=== PATIENT | female | born 1960 | race African-American/Black ===

== ENCOUNTER 2024-08-29 09:16 | Outpatient (AMB) | payer OTHER, SELFPAY ==
--- NOTE | 2024-08-29 09:31 | A.OFFVIS_ITS ---
VS Expanded 08/29/24 09:33 09/06/24 21:19 Height 5 ft 3 in 5 ft 3 in Weight 217 lb 217 lb BMI 38.4 38.4 Intake Visit Reasons: Estrogen receptor pos Medication List - Last Reconciled 09/04/[address], LDN metformin 500 mg PO BID Nutrition Presentation Details: Pt presents for MNT for T2DM with malignant neoplasm of upper inner quadrant of left breast . Pt referred by Dr. Jc Silver from [facility] Pt reports currently participating in the [employer] program in [place] , 2 hours a week Pt reports hx of T2DM , stent in heart in 2021, HTN, hyperlipidemia currently on metformin 500 mg twice/day and jardiance 10 mg/d - did not bring glucometer to this appt Food frequency f: 0-1/d v: 1 serving/d dairy: 1-2/d starches > 20 fish 0-1/m beverages: water etoh/smoking----- BS Monitoring Most Recent Diabetes Results: No Data to Display UMB-Uergyvb-Tc.Jeor Equation Height: 5 ft 3 in Weight: 217 lb Resting Metabolic Rate: 1497.72 Calculated Activity Level: Mild Activity Calories Needed to Maintain Weight: 9.37 Diagnosis Nutrition problem #1: overweight/obesity As related to (etiology) #1: lack of nutrit education and diagnosis As evidenced by (sign/symptom) #1: food recall [facility] Medical History (Updated 09/04/24 @ 14:[address], LDN) HTN (hypertension) Hyperlipidemia 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, estrogen receptor positive Assessment & Plan Assessment & Plan (1) T2DM (type 2 diabetes mellitus): Comment: w malignant neoplasm of upper inner quadrant of left bread , estrogen receptor positive Code(s): E11.9 - Type 2 diabetes mellitus without complications Category: Medical Plan: Wt: 98 Kg ( 09/18 ) Est kcal needs as per MSJ: 2000 (40% carb, 30% protein/fat) Est fluid needs as per 25-30 ml/d: 3000 Est prot per day as per 1 g/kg bw: 98 Recommend fiber intake : 8-10 g per day and gradually increase to 25-28 g per day for women and 35-38 g for men or as tolerated Recommend sodium intake per day : less than 2300 mg Educated patient on: ( R = reviewed V = verbalizes understanding N/R = needs review N/A = not applicable * Food sources of carbohydrate, adequate serving sizes and its role in various health conditions: R * Differences between complex carbohydrates a simple carbohydrates, role of fiber in diet: R * Lean protein sources of foods: R * Differences between types of fats and role in diet (mono on saturated fat fatty acids, saturated fatty acids, trans fats): R V N/R * Food sources of sodium in salt and healthy modifications for heart health in kidney health: R V R/V * Vitamins and minerals: R V N/R * Healthy plate method concept: R V N/R * Physical activity: Benefits a precaution: R V N/R * Hypoglycemia protocol (rule of 15): R V N/R * Dietary prevention of Hyperglycemia: R V Patient Instructions: Choose whole grain foods (lentils, beans, whole grain breads/cereals/fruits veg ) 45-60 g carb per meal following healthy plate method choose yogurt with fruit as bedtime snack, having at least a serving of protein at bedtime keep hydrated by having water, fruits/herb infusedwater, milk, broth, low sugar jello Coding Level of Care Code Nutr Indiv Intake (61718) Diagnoses T2DM (type 2 diabetes mellitus) E11.9 Time Spent (min) 30
[2024-08-29 09:33] VITALS: BMI 38.4
--- OUTSIDE RECORDS SUMMARY | 2024-08-29 10:18 | XMS_ITS | Encounter Summary ---
Author Organization [facility] Address [address] [place] [address] Care Team Providers Care Substance Abuse Clinician Name Role Phone Kristin Lutz MD Primary Care Provider [phone] Encounter Details Date Type Department Care Team (Latest Contact Info) Description 07/30/2024 9:23 AM EST - 07/30/2024 11:59 PM EST Hospital Encounter [facility] Radiation Oncology [address] [phone] Discharge Disposition: Home or Self Care Social History Tobacco Use Types Packs/Day Years Used Date Smoking Tobacco: Every Day Cigarettes 0.1 40.2 Started: 1984 Smokeless Tobacco: Never Alcohol Use Standard Drinks/Week Comments Not Currently 0 (1 standard drink = 0.6 oz pur e alcohol) Interpersonal Safety Answer Date Record ed Physical Abuse 05/02/2024 Verbal Abuse 05/02/2024 Comments No Sex and Gender Information Value Date Recorded Sex Assigned at Female 04/27/2024 3:58 PM EDT Legal Sex Female 12:02 AM EST Gender Identity Female 04/27/2024 3:58 PM EDT Sexual Orientation Not on file documented as of this encounter Medications at Time of Discharge acetaminophen (TYLENOL 8 HOUR) 650 mg 8 hr tablet PLEASE SEE ATTACHED FOR DETAILED DIRECTIONS 07/13/2024 acetaminophen (TYLENOL) 500 mg tablet Take by mouth every 6 (six) hours if needed for mild pain. albuterol HFA (PROAIR HFA ; PROVENTIL HFA ; VENTOLIN HFA) 90 mcg/actuation inhaler INHALE 2 PUFFS INHALATION EVERY 6 HOURS NEEDED FOR WHEEZING/SHORTN ESS OF BREATH 05/25/2024 amoxicillin (AMOXIL) 500 mg capsule Take 1 capsule (500 mg total) by mouth every 12 (twelve) hours. aspirin 81 mg EC tablet Take 1 tablet (81 mg total) by mouth 1 (one) time. 01/14/2021 atorvastatin (LIPITOR) 80 mg tablet TAKE 1 TABLET BY MOUTH EVERYDAY AT BEDTIME 90 tablet 3 07/24/2024 blood-glucose meter misc 1 Device by Not Applicable route. 12/24/2022 calcium carbonate-vit D3-min 600 mg-10 mcg (400 unit) tablet Take 1 tablet by mouth 2 (two) times a day. 180 tablet 3 06/13/2024 calcium carbonate-vitamin D3 600 mg-5 mcg (200 unit) per tablet Take 1 tablet by mouth 2 times daily. 07/04/2024 diclofenac (VOLTAREN) 1 % topical gel Apply 1 Dose topically. 10/26/2022 glucose blood test strip 1 each. 12/29/2022 ibuprofen (ADVIL,MOTRIN) 400 mg tablet TAKE 1 TABLET BY MOUTH EVERY 6 HOURS NEEDED FOR MODERATE PAIN FOR UP TO 10 DAYS 05/02/2024 Jardiance 10 mg tabletIndications:T ype 2 diabetes mellitus without complications (CMS/[facility]) TAKE 1 TABLET BY MOUTH EVERY DAY 90 tablet 3 07/25/2024 lancets lancets Dx: e11.9 Check blood sugars two times daily 12/29/2022 latanoprost (XALATAN) 0.005 % ophthalmic solution Administer 1 drop into both eyes at bedtime. metFORMIN (GLUCOPHAGE) 500 mg tablet TAKE 1 TABLET BY MOUTH TWICE A DAY WITH MEALS 180 tablet 1 07/24/2024 metoprolol succinate (TOPROL-XL) 50 mg 24 hr tablet TAKE 1 TABLET BY MOUTH EVERY DAY 90 tablet 3 07/24/2024 sacubitriL-valsarta n (Entresto) 24-26 mg per tablet Take 1 tablet by mouth 2 (two) times a day. tobramycin-dexAMETH asone (TOBRADEX) ophthalmic suspension PLACE 1 DROP INTO BOTH EYES EVERY 4 HOURS (WHILE AWAKE). 01/03/2024 documented as of this encounter Discharge Disposition Disposition Code Departure Means Destination Home or Self Care documented in this encounter Plan of Treatment Upcoming Encounters Date Type Department Care Team (Late st Contact Info) Description 09/04/2024 11:00 AM EDT [facility] 271 [facility] [address] [place] [phone] Dio Ram MD 271 [facility] [address] [place] [address] 02/19/2025 9:30 AM EDT Office Visit Internal Medicine [facility] [address] [phone] Kristin Lutz MD 175 [facility] [address] [place] [phone] 03/04/2025 1:00 PM EDT Office Visit [facility] Hematology Oncology [address] [place] [phone] Samara Trujillo MD [address] [place] [address] documented as of this encounter Procedures Procedure Name Priority Date/Time Associated Diagnosis Comments RAD ONC MSQ TREATMENT SUMMARY Routine 07/30/2024 10:09 AM EST documented in this encounter Results * Rad Onc Msq Treatment Summary (07/30/2024 10:09 AM EST) Treatment Site left breast boost MOSAIQ RADIATION ONCOLOGY Course Number 1 MOSAIQ RADIATION ONCOLOGY Prescribed Fractional Dose 250 cGray MOSAIQ RADIATION ONCOLOGY Prescribed Total Dose 1,000 cGray MOSAIQ RADIATION ONCOLOGY Actual Fractions Delivered 4 MOSAIQ RADIATION ONCOLOGY Prescription Pattern Comment Vision MOSAIQ RADIATION ONCOLOGY Actual Session Delivered Dose 250 cGray MOSAIQ RADIATION ONCOLOGY Actual Total Dose 1,000 cGray MOSAIQ RADIATION ONCOLOGY Prescribed Technique NORTH/LPO MOSAIQ RADIATION ONCOLOGY Elapsed Days 5 MOSAIQ RADIATION ONCOLOGY Start Date 07/25/2024 MOSAIQ RADIATION ONCOLOGY Last Date 07/30/2024 MOSAIQ RADIATION ONCOLOGY Prescribed Number of Fractions 4 MOSAIQ RADIATION ONCOLOGY 07/30/2024 10:0 9 AM EST us Physician Radiation Oncology RADIATION ONCOLO GY ORDERABLES Final Result MOSAIQ RADIATION ONCOLOGY documented in this encounter Visit Diagnoses Not on filedocumented in this encounter Additional Health Concerns Assessment Noted Time A fall risk assessment has been complete d for the patient 06/11/2024 9:42 AM EST documented as of this encounter Care Teams Substance Abuse Clinician Relationship Specialty Start Date End Date Kristin Lutz MD [address] [phone] PCP - General Internal Medicine 05/22/18 documented as of this encounter
--- OUTSIDE RECORDS SUMMARY | 2024-08-29 10:18 | XMS_ITS | Encounter Summary ---
Author Organization [facility] Address [address] [place] [address] Care Team Providers Care Electronic Test Technician Name Role Phone Kristin Lutz MD Primary Care Provider [phone] Reason for Visit * Reason Comments Follow-up Encounter Details Date Type Department Care Team (Latest Contact Info) Description 08/28/2024 10:00 AM EST Hospital Encounter [facility] Radiation Oncology [address] [phone] Anjelica Fritz NP [address] [place] [address] 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, estrogen receptor positive (CMS/HCC) (Primary Dx) Social History Tobacco Use Types Packs/Day Years [...] on file documented as of this encounter Last Filed Vital Signs Vital Sign Reading Time Taken Comments Blood Pressure 118/74 08/28/2024 10:10 AM EST Pulse 78 08/28/2024 10:10 AM EST Temperature 36.2 ??C (97.1 ??F) 08/28/2024 10:[address] Respiratory Rate 16 08/28/2024 10:10 AM EST Oxygen Saturation 96% 08/28/2024 10:10 AM EST Inhaled Oxygen Concentration - - Weight 103 kg (226 lb 12.8 oz) 08/28/2024 10:10 AM EST Height 160 cm (5' 3 ) 08/28/2024 10:10 AM EST Body Mass Index 40.18 08/28/2024 10:10 AM EST documented in this encounter Progress Notes * Anjelica Fritz NP - 08/28/2024 10:00 AM EST [address] [phone] RADIATION ONCOLOGY FOLLOW-UP Staff Physician: Anjelica Fritz NP Requesting Physician: Jc Silver MD Date of Service: 08/28/2024 Accompanied by: self Diagnosis: 1. 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, estrogen receptor positive (CMS/HCC) Stage: Cancer Staging 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, estrogen receptor positive (CMS/HCC) Staging form: Breast, AJCC 8th Edition - Pathologic stage from 05/03/2024: Stage IA (pT1c, pN1mi(sn), cM0, G2, ER+, HI+, HER2-, Oncotype DXscore: 16) - Signed by Cliff Reyes MD on 05/28/2024 Prior treatment: [employer] OPERATOR: Left Breast Treatment Period Technique Fraction Dose Fractions Total Dose Course 1 07/03/2024-07/30/2024 (days elapsed: 27) left breast 07/03/2024-07/24/2024 Tangents 267 / 266 cGy 4272 / 4,256 cGy left breast boost 07/25/2024-07/30/2024 NORTH/LPO 250 / 250 cGy 1000 / 1,000 cGy HPI: Shiloh Naylor returns for follow-up evaluation after radiation therapy. She reports she is feeling great. She reports she has some soreness, shooting in the pains, and nipple sensitivity. It is improving in frequency. Using Cetaphil and EVOO for the dryness in her skin.. Anastrozole has not started. Starts next weekend. Planning to start the [employer] program this week. HPI ROS: Review of Systems Constitutional: Negative for fatigue. Musculoskeletal: Positive for back pain. Skin: Positive for itching (dry skin). Neurological: Negative for headaches. Breast: Positive for nipple inversion and breast pain. Negative for breast skin changes and nippledischarge. Medications: Current Outpatient Medications: acetaminophen (TYLENOL 8 HOUR) 650 mg 8 hr tablet, PLEASE SEE ATTACHED FOR DETAILED DIRECTIONS, Disp: , Rfl: acetaminophen (TYLENOL) 500 mg tablet, Take by mouth every 6 (six) hours if needed for mild pain., Disp: , Rfl: amoxicillin (AMOXIL) 500 mg capsule, Take 1 capsule (500 mg total) by mouth every 12 (twelve) hours., Disp: , Rfl: aspirin 81 mg EC tablet, Take 1 tablet (81 mg total) by mouth 1 (one) time., Disp: , Rfl: atorvastatin (LIPITOR) 80 mg tablet, TAKE 1 TABLET BY MOUTH EVERYDAY AT BEDTIME, Disp: 90 tablet, Rfl: 3 blood-glucose meter misc, 1 Device by Not Applicable route., Disp: , Rfl: calcium carbonate-vit D3-min 600 mg-10 mcg (400 unit) tablet, Take 1 tablet by mouth 2 (two) times a day., Disp: 180 tablet, Rfl: 3 diclofenac (VOLTAREN) 1 % topical gel, Apply 1 Dose topically., Disp: , Rfl: glucose blood test strip, 1 each., Disp: , Rfl: ibuprofen (ADVIL,MOTRIN) 400 mg tablet, TAKE 1 TABLET BY MOUTH EVERY 6 HOURS NEEDED FOR MODERATEPAIN FOR UP TO 10 DAYS, Disp: , Rfl: Jardiance 10 mg tablet, TAKE 1 TABLET BY MOUTH EVERY DAY, Disp: 90 tablet, Rfl: 3 lancets lancets, Dx: e11.9 Check blood sugars two times daily, Disp: , Rfl: latanoprost (XALATAN) 0.005 % ophthalmic solution, Administer 1 drop into both eyes at bedtime., Disp: , Rfl: metFORMIN (GLUCOPHAGE) 500 mg tablet, TAKE 1 TABLET BY MOUTH TWICE A DAY WITH MEALS, Disp: 180 tablet, Rfl: 1 metoprolol succinate (TOPROL-XL) 50 mg 24 hr tablet, TAKE 1 TABLET BY MOUTH EVERY DAY, Disp: 90 tablet, Rfl: 3 sacubitriL-valsartan (Entresto) 24-26 mg per tablet, Take 1 tablet by mouth 2 (two) times a day., Disp: , Rfl: albuterol HFA (PROAIR HFA ; PROVENTIL HFA ; VENTOLIN HFA) 90 mcg/actuation inhaler, INHALE 2 PUFFS INHALATION EVERY 6 HOURS NEEDED FOR WHEEZING/SHORTNESS OF BREATH (Patient not taking: Reported on08/28/2024), Disp: , Rfl: calcium carbonate-vitamin D3 600 mg-5 mcg (200 unit) per tablet, Take 1 tablet by mouth 2 times daily. (Patient not taking: Reported on 08/28/2024), Disp: , Rfl: tobramycin-dexAMETHasone (TOBRADEX) ophthalmic suspension, PLACE 1 DROP INTO BOTH EYES EVERY 4 HOURS (WHILE AWAKE). (Patient not taking: Reported on 08/28/2024), Disp: , Rfl: Imported vital signs, weight Visit Vitals BP 118/74 (BP Location: Left arm, Patient Position: Sitting, BP Cuff Size: Adult) Pulse 78 Temp 36.2 ??C (97.1 ??F) (Temporal) Resp 16 Ht 1.6 m (63 ) Wt 103 kg (226 lb 12.8 oz) LMP 04/27/2019 (Approximate) Comment: Age 57 SpO2 96% BMI 40.18 kg/m?? OB Status Postmenopausal Smoking Status Every Day BSA 2.04 m?? No data recorded Physical Exam: Physical Exam Constitutional: General: She is not in acute distress. Chest: Comments: Left breast: moderate tanning. No swelling or erythema noted. Skin: General: Skin is warm and dry. Neurological: Mental Status: She is alert and oriented to person, place, and time. Mental status is at baseline. Psychiatric: Mood and Affect: Mood normal. Behavior: Behavior normal. Thought Content: Thought content normal. Judgment: Judgment normal. Impression: Anastrozole for 5 years. Any concerns with this medication please let Dr. Trujillo know. Follow-up with Dr. Ram 09/04/[address] Trujillo 03/04/2025. Resume mammograms annually. Will have a clinical breast exam every six months. Encouraged to do self-breast exams and if noted any changes to report to providers promptly. Eat a heart healthy diet and exercise with goal of 30 minutes per day five times per week. If breast cancer was to reoccur in the treatment area we would likely not treat again with radiation. Likely the treatment would be a mastectomy. Plan: Can follow-up as needed with any questions or concerns. Anjelica Fritz NP 08/28/24 12:29 PM EST documented in this encounter Plan of Treatment Upcoming Encounters Date Type Department Care Team (Late st Contact Info) Description 09/04/2024 11:00 AM EDT Office Visit [facility] [address] [phone] Dio Ram MD 271 [facility] 110 [place] [address] 02/19/2025 9:30 AM EDT Office Visit Internal Medicine [facility] [address] [phone] Kristin Lutz MD [address] [phone] 03/04/2025 1:00 PM EDT Office Visit [facility] Hematology Oncology [address] [place] [phone] Samara Trujillo MD [address] [place] [address] documented as of this encounter Visit Diagnoses Diagnosis 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, estrogen receptor positive (CMS/HCC)- Primary documented in this encounter Historical Medications * This list may reflect changes made after this encounter. calcium carbonate-vitami n D3 600 mg-5 mcg (200 unit) per tablet Take 1 tablet by mouth 2 times daily. 07/04/2024 ibuprofen (ADVIL,MOTRIN) 400 mg tablet TAKE 1 TABLET BY MOUTH EVERY 6 HOURS NEEDED FOR MODERATE PAIN FOR UP TO 10 DAYS 05/02/2024 tobramycin-dexAM ETHasone (TOBRADEX) ophthalmic suspension PLACE 1 DROP INTO BOTH EYES EVERY 4 HOURS (WHILE AWAKE). 01/03/2024 acetaminophen (TYLENOL 8 HOUR) 650 mg 8 hr tablet PLEASE SEE ATTACHED FOR DETAILED DIRECTIONS 07/13/2024 albuterol HFA (PROAIR HFA ; PROVENTIL HFA ; VENTOLIN HFA) 90 mcg/actuation inhaler INHALE 2 PUFFS INHALATION EVERY 6 HOURS NEEDED FOR WHEEZING/SHORTNE SS OF BREATH 05/25/2024 added in this encounter Additional Health Concerns Assessment Noted Time A fall risk assessment has been complete d for the patient 06/11/2024 9:42 AM EST documented as of this encounter Care Teams Electronic Test Technician Relationship Specialty Start Date End Date Kristin Lutz MD [address] [place] [phone] PCP - General Internal Medicine 05/22/18 documented as of this encounter
--- OUTSIDE RECORDS SUMMARY | 2024-08-29 10:18 | XMS_ITS | Encounter Summary ---
Author Organization [facility] Address [address] [place] [address] Care Team Providers Care Fur Nailer Name Role Phone Kristin Lutz MD Primary Care Provider [phone] Reason for Visit * Reason Onset Date Comments faxed form 08/22/2024 [facility] Encounter Details Date Type Department Care Team ([facility] st Contact Info) Description 08/22/[address] [facility] [address] [place] [phone] Ivonne Ambrose MA faxed form ([facility]) Social History Tobacco Use Types Packs/Day Years [...] on file documented as of this encounter Progress Notes * Ivonne Ambrose MA - 08/22/2024 11:55 AM EST [facility] Dental clearance form for Extractions. Placed in providers folder for signature. documented in this encounter Plan of Treatment Upcoming Encounters Date Type Department Care Team (Late st Contact Info) Description 09/04/2024 11:00 AM EDT Office Visit [facility] [address] [phone] Dio Ram MD 271 [facility] 110 [place] [address] 02/19/2025 9:30 AM EDT Office Visit Internal Medicine [facility] [address] [phone] Kristin Lutz MD [address] [phone] 03/04/2025 1:00 PM EDT Office Visit [facility] Hematology Oncology [address] [place] [phone] Samara Trujillo MD [address] [place] [address] documented as of this encounter Visit Diagnoses Not on filedocumented in this encounter Additional Health Concerns Assessment Noted Time A fall risk assessment has been complete d for the patient 06/11/2024 9:42 AM EST documented as of this encounter Care Teams Fur Nailer Relationship Specialty Start Date End Date Kristin Lutz MD [address] [phone] PCP - General Internal Medicine 05/22/18 documented as of this encounter
--- OUTSIDE RECORDS SUMMARY | 2024-08-29 10:18 | XMS_ITS | Encounter Summary ---
Author Organization [facility] Address [address] [place] [address] Care Team Providers Care Mud Car Worker Name Role Phone Kristin Lutz MD Primary Care Provider [phone] Reason for Visit * Reason Comments Follow-up Encounter Details Date Type Department Care Team (Late st Contact Info) Description 08/21/2024 1:00 PM EST Office Visit [facility] Hematology Oncology [address] [place] [phone] Samara Trujillo MD [address] [place] [address] Malignant neoplasm of upper-inner quadrant of left [...] Sign Reading Time Taken Comments Blood Pressure 117/89 08/21/2024 1:04 PM EST Pulse 62 08/21/2024 1:04 PM EST Temperature 36.2 ??C (97.1 ??F) 08/21/2024 1:04 PM ES T Respiratory Rate - - Oxygen Saturation 100% 08/21/2024 1:04 PM EST Inhaled Oxygen Concentration - - Weight 101 kg (222 lb) 08/21/2024 1:04 PM EST Height - - Body Mass Index 39.33 08/20/2024 3:10 PM EST documented in this encounter Progress Notes * Samara Trujillo MD - 08/21/2024 1:00 PM EST ONC CANCER FOLLOW UP CHIEF COMPLAINT: Follow-up IDENTIFIER:Shiloh Naylor is a 64 y.o. female. 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, patient after lumpectomy had adjuvant radiation which she finished 3 weeks ago, patient is here to discuss about adjuvant endocrine therapy ROS: Has been feeling fatigue and tired Has skin issues in the left breast after radiation which has been healing No other significant change from previous visit of 06/15/2024 Oncology History 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, estrogen receptor positive (CMS/HCC) 05/03/2024 Cancer Staged Staging form: Breast, AJCC 8th Edition - Pathologic stage from 05/03/2024: Stage IA (pT1c, pN1mi(sn), cM0, G2, ER+, AR+, HER2-, Oncotype DXscore: 16) - Signed by Cliff Reyes MD on 05/28/2024 05/28/2024 Initial Diagnosis 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 This is the current list ofradiation treatment: 3D PRICE ANALYST: Left Breast Treatment Period Technique Fraction Dose Fractions Total Dose Course 1 07/03/2024-07/30/2024 (days elapsed: 27) left breast 07/03/2024-07/24/2024 Tangents 267 / 266 cGy 4272 / 4,256 cGy left breast boost 07/25/2024-07/30/2024 NORTH/LPO 250 / 250 cGy 1000 / 1,000 cGy Cancer Staging 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, estrogen receptor positive (CMS/HCC) Staging form: Breast, AJCC 8th Edition - Pathologic stage from 05/03/2024: Stage IA (pT1c, pN1mi(sn), cM0, G2, ER+, AR+, HER2-, Oncotype DXscore: 16) - Signed by Cliff Reyes MD on 05/28/2024 Patient had an abnormal screening mammogram in February 2024, there was a some asymmetry area in medial part of the left breast Patient underwent diagnostic mammogram and ultrasound subsequently, that confirmed an approximately1 cm solid mass around 8 or 9 o'clock position in the left breast Patient underwent imaging guided biopsy of the left breast mass on 04/02/2024, pathology results showed low-grade invasive lobular carcinoma, ER positive and HER2/geronimo negative Patient subsequently saw Dr. Ram and underwent lumpectomy with sentinel lymph node dissection on 05/02/2024, final pathology showed an approximately 1.2 cm invasive lobular carcinoma, tumor was grade 2, all margins were clear, 4 sentinel lymph node assessed 1 lymph node have microscopic focus, pathological stage was [id number] Patient saw me on 05/16/2024, I had a long discussion with patient and her sister, we sent OncotypeDX testing, her 21 gene recurrence score came back only 16 (there is no potential benefit of adjuvant chemotherapy) Patient started adjuvant radiation for local control from June2024 and finish in first week of July 2024 Patient is starting anastrozole from first week of August 2024 Bone density in April 2024 consistent with osteopenia PAST MEDICAL HISTORY: Patient Active Problem List Diagnosis Benign essential hypertension History of myocardial infarct at age greater than 60 years HLD (hyperlipidemia) Severe obesity (CMS/HCC) Type 2 diabetes mellitus without complication (CMS/HCC) Cervical radiculopathy at C7 Lumbar spondylosis Osteopenia determined by x-ray Sciatica Glaucoma Hypertension Diabetes mellitus (CMS/HCC) 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, estrogen receptor positive (CMS/HCC) Past Medical History: Diagnosis Date Arthritis Cancer (CMS/HCC) Diabetes mellitus (CMS/HCC) Glaucoma Hyperlipidemia Hypertension Myocardial infarction (CMS/HCC) SOCIAL HISTORY: Social History Tobacco Use Smoking status: Every Day Current packs/day: 0.10 Average packs/day: 0.1 packs/day for 40.2 years (4.0 ttl pk-yrs) Types: Cigarettes Start date: 1984 Smokeless tobacco: Never Substance Use Topics Alcohol use: Not Currently FAMILY HISTORY: Family History Problem Relation Name Age of Onset Adrenal disorder Other Breast cancer Other Family Status Relation Name Status Other (Not Specified) Other Alive No partnership data on file Current Outpatient Medications: acetaminophen (TYLENOL) 500 mg tablet, Take by [...] test strip, 1 each., Disp: , Rfl: Jardiance 10 mg tablet, [...] (two) times a day., Disp: , Rfl: No Known Allergies PHYSICAL EXAM: Visit Vitals BP 117/89 (BP Location: Left arm, Patient Position: Sitting, BP Cuff Size: Large adult) Pulse 62 Temp 36.2 ??C (97.1 ??F) (Temporal) Wt 101 kg (222 lb) LMP 04/27/2019 (Approximate) Comment: Age 57 SpO2 100% BMI 39.33 kg/m?? OB Status Postmenopausal Smoking Status Every Day BSA 2.02 m?? ECOG 0 APPEARANCE: Alert and oriented x 3 in no acute distress EYES: nonicteric sclera pink conjunctiva ORAL CAVITY: No erythema or exudates NECK: Neck supple, no significant adenopathy, HEART: normal S1 and S2 LUNG: clear to auscultation bilaterally LYMPH NODES: No palpable superficial adenopathy ABDOMEN: soft, nontender and no organomegaly appreciated EXTREMITIES: No edema erythema or tenderness IMPRESSION: 1. 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, estrogen receptor positive (CMS/HCC) Patient is a very pleasant 64-year-old -Russian female who recently had lumpectomy for invasive lobular carcinoma of left breast, ER positive, AR negative and HER2/geronimo negative, patient had [id number] pathology, patient had low Oncotype DX recurrence score so patient underwent adjuvant radiation which she finished 3 weeks ago, patient have some fatigue and skin issues due to radiation, I told patient radiation will continue to work for at least 2 to 4- week after finishing radiation, I toldpatient about adjuvant endocrine therapy I discussed with the patient and her family in detail about risk benefit of adjuvant endocrine therapy/aromatase inhibitor, explained rationale of using adjuvant endocrine therapy for 5-year, explained potential side effect including hot flashes, issues with the bone density, aches and pain etc. indetail PLAN: Patient will start anastrozole 1 mg daily from first week of August 2024 I will see her back in 6 months Samara Trujillo MD documented in this encounter Plan of Treatment Upcoming Encounters Date Type Department Care Team (Late st Contact Info) Description 09/04/2024 11:00 AM EDT Office Visit Breast Care [facility] [address] [place] [address] Dio Ram MD [address] [facility] [address] [place] [address] 02/19/2025 9:30 AM EDT Office Visit Internal Medicine - [place] [address] [phone] Kristin Lutz MD [address] [phone] 03/04/2025 1:00 PM EDT Office Visit [facility] Hematology Oncology [address] [place] [phone] Samara Turjillo MD [address] [place] [address] documented as of this encounter Visit Diagnoses Diagnosis 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, estrogen receptor positive (CMS/HCC)- Primary documented in this encounter Additional Health Concerns Assessment Noted Time A fall risk assessment has been complete d for the patient 06/11/2024 9:42 AM EST documented as of this encounter Care Teams Mud Car Worker Relationship Specialty Start Date End Date Kristin Lutz MD [address] [phone] PCP - General Internal Medicine 05/22/18 documented as of this encounter
--- OUTSIDE RECORDS SUMMARY | 2024-08-29 10:18 | XMS_ITS | Encounter Summary ---
Author Organization [facility] Address [address] [place] [address] Care Team Providers Care Supervisor Money Room Name Role Phone Kristin Lutz MD Primary Care Provider Reason for Visit * Reason Comments OTV Encounter Details Date Type Department Care Team (Latest Contact Info) Description 07/30/2024 10:05 AM EST - 07/30/2024 11:59 PM EST Hospital Encounter [facility] Radiation Oncology [address] [place] [phone] Bailey Monique MD [address] [place] [address] 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, estrogen receptor positive (CMS/HCC) (Primary Dx) Discharge Disposition: Home or Self Care Social [...] tabletIndications:T ype 2 diabetes mellitus without complications ([facility]) TAKE 1 TABLET BY MOUTH EVERY DAY [...] or Self Care documented in this encounter Progress Notes * Latoya Mcdonald RN - 07/30/2024 10:05 AM EST Discharge Instructions after Radiation Treatments Side effects present at the end of treatment will usually improve in a few weeks. If you developed a skin reaction, it may continue to worsen for the next 7-10 days. Continue to be gentle with your skin. Your skin will be more sensitive to sunburn. Protect yourself from the sun. If needed, use sunscreen at least SPF 30. Fatigue and weakness may continue for several weeks. Be sure to get plenty of rest. Plan your activities accordingly. Continue healthy eating habits. Stay well hydrated, drink plenty of fluids. Follow-up visits will be scheduled so your Radiation physician can monitor your progress. Follow up in 4 - 6 weeks. Go to front tender for follow up appointment. Please call [phone] and select option #2 with any questions or concerns prior to your next visit. * Latoya Mcdonald RN - 07/30/2024 10:05 AM EST Met with pt and her sister for discharge. Reviewed written discharge instructions and questions answered. Pt was instructed to make a 4-6 week follow up appt upon leaving. Pt verbalized understanding. Pt was instructed to call with any questions or concerns prior. * Bailey Monique MD - 07/30/2024 10:05 AM EST Radiation Oncology On Treatment Visit Patient Name: Shiloh Naylor Date of : 1960 Attending Provider: Bailey Monique MD Encounter Date: 07/30/2024 Diagnosis: 1. 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, estrogen receptor positive (CMS/HCC) Staging Info: Cancer Staging 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, estrogen receptor positive (CMS/HCC) Staging form: Breast, AJCC 8th Edition - Pathologic stage from 05/03/2024: Stage IA (pT1c, pN1mi(sn), cM0, G2, ER+, MD+, HER2-, Oncotype DXscore: 16) - Signed by Cliff Reyes MD on 05/28/2024 Interval/Dose History: 3D SUPERVISOR METAL CANS: Left Breast Treatment Period Technique Fraction Dose Fractions Total Dose Course 1 07/03/2024-07/30/2024 (days elapsed: 27) left breast 07/03/2024-07/24/2024 Tangents 267 / 266 cGy 4272 / 4,256 cGy left breast boost 07/25/2024-07/30/2024 NORTH/LPO 250 / 250 cGy 1000 / 1,000 cGy Subjective: Are you experiencing any fatigue: yes Are you experiencing any skin reactions: No Do you have any concerns about the treatment area: no Any breast pain: yes, pt reports tenderness underneath the breast. When she presses against her breast she can feel the tenderness. Are you using any moisturizer: yes , Pt is using cetaphil to breast. Pain over nipple area Vitals Visit Vitals LMP 04/27/2019 (Approximate) Comment: Age 57 OB Status Postmenopausal Smoking Status Every Day Objective including Physical Exam: Gen: no apparent distress Breast: left breast with no skin reaction Lab Results: Sodium Date Value Ref Range Status 07/27/2024 138 133 - 145 mmol/L Final Potassium Date Value Ref Range Status 07/27/2024 4.0 3.5 - 5.5 mmol/L Final Chloride Date Value Ref Range Status 07/27/2024 108 96 - 110 mmol/L Final CO2 Date Value Ref Range Status 07/27/2024 23 21 - 32 mmol/L Final Glucose POCT Date Value Ref Range Status 05/02/2024 107 (H) 70 - 100 mg/dL Final Glucose Date Value Ref Range Status 07/27/2024 173 (H) 70 - 100 mg/dL Final BUN Date Value Ref Range Status 07/27/2024 20 5 - 25 mg/dL Final Creatinine Date Value Ref Range Status 07/27/2024 1.01 0.50 - 1.10 mg/dL Final Total Protein Date Value Ref Range Status 07/27/2024 7.0 6.0 - 8.0 g/dL Final Albumin Date Value Ref Range Status 07/27/2024 3.9 3.2 - 5.0 g/dL Final Total Bilirubin Date Value Ref Range Status 07/27/2024 0.4 0.0 - 1.4 mg/dL Final AST (SGOT) Date Value Ref Range Status 07/27/2024 18 10 - 42 unit/L Final ALT (SGPT) Date Value Ref Range Status 07/27/2024 34 10 - 60 unit/L Final Alkaline Phosphatase Date Value Ref Range Status 07/27/2024 68 42 - 121 unit/L Final eGFR Date Value Ref Range Status 07/27/2024 62 >=60 mL/min/1.73m2 Final Comment: Calculation based on the Chronic Kidney Disease Epidemiology Collaboration (CKD- EPI) equation refitwithout adjustment for race. No results found for: WBC , ADJUSTEDWBC , HGB , HCT , PLT Treatment Tolerance: Patient is tolerating the treatment well with no concerns. Assessment/Plan: Pt is tolerating treatment well with the expected acute side effects. Referral to Nutrition per patient request No orders of the defined types were placed in this encounter. I have reviewed set-up, dosimetry, and portal images. The Karnofsky performance scale today is 100, Fully active, able to carry on all pre-disease performed without restriction (ECOG equivalent 0). Bailey Monique MD 07/30/2024 10:22 AM EST documented in this encounter Plan of Treatment Upcoming Encounters Date Type Department Care Team (Late st Contact Info) Description 09/04/2024 11:00 AM EDT Office Visit [facility] [address] [place] [address] Dio Ram MD [address] [facility] [address] [place] [address] 02/19/2025 9:30 AM EDT Office Visit Internal Medicine - [place] [address] [phone] Kristin Lutz MD [address] [phone] 03/04/2025 1:00 PM EDT Office Visit [facility] Hematology Oncology [address] [place] [phone] Samara Trujillo MD [address] [place] [address] documented as of this encounter Visit Diagnoses Diagnosis 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, estrogen receptor positive (CMS/HCC)- Primary documented in this encounter Additional Health Concerns Assessment Noted Time A fall risk assessment has been complete d for the patient 06/11/2024 9:42 AM EST documented as of this encounter Care Teams Supervisor Money Room Relationship Specialty Start Date End Date Kristin Lutz MD [address] [phone] PCP - General Internal Medicine 05/22/18 documented as of this encounter
--- OUTSIDE RECORDS SUMMARY | 2024-08-29 10:18 | XMS_ITS | Encounter Summary ---
Author Organization [facility] Address [address] [place] [address] Care Team Providers Care Prawn Trawler Hand Name Role Phone Kristin Lutz MD Primary Care Provider [phone] Reason for Visit * Reason Comments Follow-up Encounter Details Date Type Department Care Team (Latest Contact Info) Description 08/20/2024 3:00 PM EST Office Visit Internal Medicine - [facility] 175 [facility] [address] [place] [address] Hao Michelle NP 175 [facility] [address] [place] [address] Type 2 diabetes mellitus without complication, without long-term current use of insulin (CMS/HCC) (Primary Dx); Lumbar spondylosis; Hypertension, unspecified type; Osteopenia determined by x-ray; Hyperlipidemia, unspecified hyperlipidemia type; Severe obesity (CMS/HCC); 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, estrogen receptor positive (CMS/HCC); History of myocardial infarct at age greater than 60 years Social History Tobacco Use Types Packs/Day Years [...] Sign Reading Time Taken Comments Blood Pressure 130/78 08/20/2024 3:10 PM EST Pulse 85 08/20/2024 3:10 PM EST Temperature 36.4 ??C (97.5 ??F) 08/20/2024 3:10 PM ES T Respiratory Rate - - Oxygen Saturation 99% 08/20/2024 3:10 PM EST Inhaled Oxygen Concentration - - Weight 99.4 kg (219 lb 3.2 oz) 08/20/2024 3:10 P M EST Height 160 cm (5' 3 ) 08/20/2024 3:10 PM EST Body Mass Index 38.83 08/20/2024 3:10 PM EST documented in this encounter Progress Notes * Hao Michelle NP - 08/20/2024 3:00 PM EST CHIEF COMPLAINT: Follow-up IDENTIFIER: Shiloh Naylor is a 64 y.o. old female. HPI: hypertension hyperlipidemia diabetes osteopenia. Shiloh is a 64-year-old female who presents today for a follow-up visit. Recent blood work showed A1c 6.7, diabetes stable. Remaining labs unremarkable. Completed radiation treatment on July 30 2023. Then will be switching to oral medication for cancer management. Needs form filled out to participate in a [email or web address] program, needs medical clearance for exercise. 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 States she is doing well healthwise, denies shortness of breath with exertion, denies chest pain, denies generalized weakness. ROS: See HPI. PAST MEDICAL HISTORY: Patient Active Problem List Diagnosis Date Noted 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, estrogen receptor positive (CMS/HCC) 05/28/2024 Hypertension 05/20/2024 Diabetes mellitus (CMS/HCC) 05/20/2024 Cervical radiculopathy at C7 07/09/2022 Lumbar spondylosis 07/14/2021 History of myocardial infarct at age greater than 60 years 01/22/2021 Osteopenia determined by x-ray 08/06/2020 HLD (hyperlipidemia) 12/16/2017 Type 2 diabetes mellitus without complication ([facility]) 12/16/2017 Benign essential hypertension 08/10/2017 Sciatica 09/12/2013 Glaucoma 09/12/2013 Severe obesity ([facility]) 03/19/2013 Past Surgical History: Procedure Laterality Date BREAST SURGERY 05/02/2024 Left breast magnetic seed localized partial mastectomy, sentinel node biopsy CARDIAC CATHETERIZATION CATARACT EXTRACTION COLONOSCOPY CORONARY STENT PLACEMENT MICRODISCECTOMY LUMBAR ORIF ANKLE FRACTURE OTHER SURGICAL HISTORY SOCIAL HISTORY: Social History Tobacco Use Smoking status: Every Day Current packs/day: 0.10 Average packs/day: 0.1 packs/day for 40.1 years (4.0 ttl pk-yrs) Types: Cigarettes Start date: 1984 Smokeless tobacco: Never Substance Use Topics Alcohol use: Not Currently FAMILY HISTORY: Family History Problem Relation Name Age of Onset Adrenal disorder Other Breast cancer Other Family Status Relation Name Status Other (Not Specified) Other Alive No partnership data on file MEDICATIONS DISCONTINUED/REORDERED: There are no discontinued medications. ACTIVE MEDICATIONS: Outpatient Medications Marked as Taking for the 08/20/24 encounter (Office Visit) with Hao Michelle NP Medication Sig Dispense Refill acetaminophen (TYLENOL) 500 mg tablet Take by mouth every 6 (six) hours if needed for mild pain. amoxicillin (AMOXIL) 500 mg capsule Take 1 capsule (500 mg total) by mouth every 12 (twelve) hours. aspirin 81 mg EC tablet Take 1 tablet (81 mg total) by mouth 1 (one) time. atorvastatin (LIPITOR) 80 mg tablet TAKE 1 TABLET BY MOUTH EVERYDAY AT BEDTIME 90 tablet 3 blood-glucose meter misc 1 Device by Not Applicable route. calcium carbonate-vit D3-min 600 mg-10 mcg (400 unit) tablet Take 1 tablet by mouth 2 (two) times aday. 180 tablet 3 diclofenac (VOLTAREN) 1 % topical gel Apply 1 Dose topically. glucose blood test strip 1 each. Jardiance 10 mg tablet TAKE 1 TABLET BY MOUTH EVERY DAY 90 tablet 3 lancets lancets Dx: e11.9 Check blood sugars two times daily latanoprost (XALATAN) 0.005 % ophthalmic solution Administer 1 drop into both eyes at bedtime. metFORMIN (GLUCOPHAGE) 500 mg tablet TAKE 1 TABLET BY MOUTH TWICE A DAY WITH MEALS 180 tablet 1 metoprolol succinate (TOPROL-XL) 50 mg 24 hr tablet TAKE 1 TABLET BY MOUTH EVERY DAY 90 tablet 3 sacubitriL-valsartan (Entresto) 24-26 mg per tablet Take 1 tablet by mouth 2 (two) times a day. ALLERGIES: No Known Allergies PHYSICAL EXAM: Visit Vitals BP 130/78 (BP Location: Left arm, Patient Position: Sitting, BP Cuff Size: Adult) Pulse 85 Temp 36.4 ??C (97.5 ??F) (Temporal) Ht 1.6 m (63 ) Wt 99.4 kg (219 lb 3.2 oz) LMP 04/27/2019 (Approximate) Comment: Age 57 SpO2 99% BMI 38.83 kg/m?? OB Status Postmenopausal Smoking Status Every Day BSA 2.01 m?? Physical Exam Constitutional: Appearance: Normal appearance. Cardiovascular: Rate and Rhythm: Normal rate and regular rhythm. Pulses: Normal pulses. Heart sounds: Normal heart sounds. Pulmonary: Effort: Pulmonary effort is normal. Breath sounds: Normal breath sounds. Neurological: General: No focal deficit present. Mental Status: She is alert and oriented to person, place, and time. Psychiatric: Mood and Affect: Mood normal. Behavior: Behavior normal. LABS/IMAGING: Hospital Outpatient Visit on 07/30/2024 Component Date Value Ref Range Status Treatment Site 07/30/2024 left breast boost Final Course Number 07/30/2024 1 Final Prescribed Fractional Dose 07/30/2024 250 cGray Final Prescribed Total Dose 07/30/2024 1,000 cGray Final Actual Fractions Delivered 07/30/2024 4 Final Prescription Pattern Comment 07/30/2024 Vision Final Actual Session Delivered Dose 07/30/2024 250 cGray Final Actual Total Dose 07/30/2024 1,000 cGray Final Prescribed Technique 07/30/2024 NORTH/LPO Final Elapsed Days 07/30/2024 5 Final Start Date 07/30/2024 07/25/2024 Final Last Date 07/30/2024 07/30/2024 Final Prescribed Number of Fractions 07/30/2024 4 Final Hospital Outpatient Visit on 07/27/2024 Component Date Value Ref Range Status Treatment Site 07/27/2024 left breast boost Final Course Number 07/27/2024 1 Final Prescribed Fractional Dose 07/27/2024 250 cGray Final Prescribed Total Dose 07/27/2024 1,000 cGray Final Actual Fractions Delivered 07/27/2024 3 Final Prescription Pattern Comment 07/27/2024 Vision Final Actual Session Delivered Dose 07/27/2024 251 cGray Final Actual Total Dose 07/27/2024 753 cGray Final Prescribed Technique 07/27/2024 NORTH/LPO Final Elapsed Days 07/27/2024 2 Final Start Date 07/27/2024 07/25/2024 Final Last Date 07/27/2024 07/27/2024 Final Prescribed Number of Fractions 07/27/2024 4 Final Appointment on 07/27/2024 Component Date Value Ref Range Status Hemoglobin A1C 07/27/2024 6.7 (H) <6.5 % Final Mean Bld Glu Estim. 07/27/2024 146 mg/dL Final Cholesterol 07/27/2024 139 0 - 200 mg/dL Final Triglycerides 07/27/2024 130 0 - 150 mg/dL Final HDL 07/27/2024 43 >=40 mg/dL Final LDL Calculated 07/27/2024 70 0 - 100 mg/dL Final VLDL Cholesterol Olegario 07/27/2024 26 mg/dL Final Non HDL Chol. (LDL+VLDL) 07/27/2024 96 <145 mg/dL Final Chol/HDL Ratio 07/27/2024 3.2 0.0 - 4.4 Final Sodium 07/27/2024 138 133 - 145 mmol/L Final Potassium 07/27/2024 4.0 3.5 - 5.5 mmol/L Final Chloride 07/27/2024 108 96 - 110 mmol/L Final CO2 07/27/2024 23 21 - 32 mmol/L Final Anion Gap 07/27/2024 7 3 - 11 Final Glucose 07/27/2024 173 (H) 70 - 100 mg/dL Final BUN 07/27/2024 20 5 - 25 mg/dL Final Creatinine 07/27/2024 1.01 0.50 - 1.10 mg/dL Final eGFR 07/27/2024 62 >=60 mL/min/1.73m2 Final BUN/Creatinine Ratio 07/27/2024 19.8 Final Calcium 07/27/2024 9.6 8.5 - 10.5 mg/dL Final AST (SGOT) 07/27/2024 18 10 - 42 unit/L Final ALT (SGPT) 07/27/2024 34 10 - 60 unit/L Final Alkaline Phosphatase 07/27/2024 68 42 - 121 unit/L Final Total Protein 07/27/2024 7.0 6.0 - 8.0 g/dL Final Albumin 07/27/2024 3.9 3.2 - 5.0 g/dL Final Total Bilirubin 07/27/2024 0.4 0.0 - 1.4 mg/dL Final Hospital Outpatient Visit on 07/26/2024 Component Date Value Ref Range Status Treatment Site 07/26/2024 left breast boost Final Course Number 07/26/2024 1 Final Prescribed Fractional Dose 07/26/2024 250 cGray Final Prescribed Total Dose 07/26/2024 1,000 cGray Final Actual Fractions Delivered 07/26/2024 2 Final Prescription Pattern Comment 07/26/2024 Vision Final Actual Session Delivered Dose 07/26/2024 251 cGray Final Actual Total Dose 07/26/2024 502 cGray Final Prescribed Technique 07/26/2024 NORTH/LPO Final Elapsed Days 07/26/2024 1 Final Start Date 07/26/2024 07/25/2024 Final Last Date 07/26/2024 07/26/2024 Final Prescribed Number of Fractions 07/26/2024 4 Final Hospital Outpatient Visit on 07/25/2024 Component Date Value Ref Range Status Treatment Site 07/25/2024 left breast boost Final Course Number 07/25/2024 1 Final Prescribed Fractional Dose 07/25/2024 250 cGray Final Prescribed Total Dose 07/25/2024 1,000 cGray Final Actual Fractions Delivered 07/25/2024 1 Final Prescription Pattern Comment 07/25/2024 Vision Final Actual Session Delivered Dose 07/25/2024 251 cGray Final Actual Total Dose 07/25/2024 251 cGray Final Prescribed Technique 07/25/2024 NORTH/LPO Final Elapsed Days 07/25/2024 0 Final Start Date 07/25/2024 07/25/2024 Final Last Date 07/25/2024 07/25/2024 Final Prescribed Number of Fractions 07/25/2024 4 Final Hospital Outpatient Visit on 07/24/2024 Component Date Value Ref Range Status Treatment Site 07/24/2024 left breast Final Course Number 07/24/2024 1 Final Prescribed Fractional Dose 07/24/2024 266 cGray Final Prescribed Total Dose 07/24/2024 4,256 cGray Final Actual Fractions Delivered 07/24/2024 16 Final Prescription Pattern Comment 07/24/2024 free breathing Final Actual Session Delivered Dose 07/24/2024 267 cGray Final Actual Total Dose 07/24/2024 4,272 cGray Final Prescribed Technique 07/24/2024 Tangents Final Elapsed Days 07/24/2024 21 Final Start Date 07/24/2024 07/03/2024 Final Last Date 07/24/2024 07/24/2024 Final Prescribed Number of Fractions 07/24/2024 16 Final Hospital Outpatient Visit on 07/23/2024 Component Date Value Ref Range Status Treatment Site 07/23/2024 left breast Final Course Number 07/23/2024 1 Final Prescribed Fractional Dose 07/23/2024 266 cGray Final Prescribed Total Dose 07/23/2024 4,256 cGray Final Actual Fractions Delivered 07/23/2024 15 Final Prescription Pattern Comment 07/23/2024 free breathing Final Actual Session Delivered Dose 07/23/2024 267 cGray Final Actual Total Dose 07/23/2024 4,005 cGray Final Prescribed Technique 07/23/2024 Tangents Final Elapsed Days 07/23/2024 20 Final Start Date 07/23/2024 07/03/2024 Final Last Date 07/23/2024 07/23/2024 Final Prescribed Number of Fractions 07/23/2024 16 Final Hospital Outpatient Visit on 07/20/2024 Component Date Value Ref Range Status Treatment Site 07/20/2024 left breast Final Course Number 07/20/2024 1 Final Prescribed Fractional Dose 07/20/2024 266 cGray Final Prescribed Total Dose 07/20/2024 4,256 cGray Final Actual Fractions Delivered 07/20/2024 14 Final Prescription Pattern Comment 07/20/2024 free breathing Final Actual Session Delivered Dose 07/20/2024 267 cGray Final Actual Total Dose 07/20/2024 3,738 cGray Final Prescribed Technique 07/20/2024 Tangents Final Elapsed Days 07/20/2024 17 Final Start Date 07/20/2024 07/03/2024 Final Last Date 07/20/2024 07/20/2024 Final Prescribed Number of Fractions 07/20/2024 16 Final Hospital Outpatient Visit on 07/19/2024 Component Date Value Ref Range Status Treatment Site 07/19/2024 left breast Final Course Number 07/19/2024 1 Final Prescribed Fractional Dose 07/19/2024 266 cGray Final Prescribed Total Dose 07/19/2024 4,256 cGray Final Actual Fractions Delivered 07/19/2024 13 Final Prescription Pattern Comment 07/19/2024 free breathing Final Actual Session Delivered Dose 07/19/2024 267 cGray Final Actual Total Dose 07/19/2024 3,471 cGray Final Prescribed Technique 07/19/2024 Tangents Final Elapsed Days 07/19/2024 16 Final Start Date 07/19/2024 07/03/2024 Final Last Date 07/19/2024 07/19/2024 Final Prescribed Number of Fractions 07/19/2024 16 Final Hospital Outpatient Visit on 07/18/2024 Component Date Value Ref Range Status Treatment Site 07/18/2024 left breast Final Course Number 07/18/2024 1 Final Prescribed Fractional Dose 07/18/2024 266 cGray Final Prescribed Total Dose 07/18/2024 4,256 cGray Final Actual Fractions Delivered 07/18/2024 12 Final Prescription Pattern Comment 07/18/2024 free breathing Final Actual Session Delivered Dose 07/18/2024 267 cGray Final Actual Total Dose 07/18/2024 3,204 cGray Final Prescribed Technique 07/18/2024 Tangents Final Elapsed Days 07/18/2024 15 Final Start Date 07/18/2024 07/03/2024 Final Last Date 07/18/2024 07/18/2024 Final Prescribed Number of Fractions 07/18/2024 16 Final There may be more visits with results that are not included. IMPRESSION: 1. Type 2 diabetes mellitus without complication, without long-term current use of insulin (CMS/HCC) 2. Lumbar spondylosis 3. Hypertension, unspecified type 4. Osteopenia determined by x-ray 5. Hyperlipidemia, unspecified hyperlipidemia type 6. Severe obesity (CMS/HCC) 7. 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, estrogen receptor positive (CMS/HCC) 8. History of myocardial infarct at age greater than 60 years PLAN: 1. Type 2 diabetes mellitus without complication, without long-term current use of insulin (CMS/HCC) 2. Lumbar spondylosis 3. Hypertension, unspecified type 4. Osteopenia determined by x-ray 5. Hyperlipidemia, unspecified hyperlipidemia type 6. Severe obesity (CMS/HCC) 7. 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, estrogen receptor positive (CMS/HCC) 8. History of myocardial infarct at age greater than 60 years 1. Diabetes--last A1c 6.8,,continue metformin 2 pills a day, continue Jardiance,will order A1c today. 2. Lumbar spondylosis --following neurosurgery 3. Hypertension--continue Entresto and metoprolol, blood pressure is under good control 4. Osteopenia--continue calcium with vitamin D twice daily 5. Hyperlipidemia--continue atorvastatin 80 mg daily, lipid panel within normal limits 6. Obesity--weight loss and ADA diet discussed 7. Breast cancer: Completed radiation therapy. Will be transitioning to oral cancer medication. Cleared to participate in [employer] program. 8. History of myocardial infarction: Following up with cardiology. Colon 11/2023--10 yrs UTD with mammo We will follow-up in 6 months or sooner as needed. Advised the patient to call me if any problems. Patient understands the plan. Patient is in agreement with the plan. Hao Michelle NP on 08/20/2024 at 4:37 PM EST documented in this encounter Plan of Treatment Upcoming Encounters Date Type Department Care Team (Late st Contact Info) Description 09/04/2024 11:00 AM EDT Office Visit [facility] [address] [place] [phone] Dio Ram MD [address] [place] [address] 02/19/2025 9:30 AM EDT Office Visit Internal Medicine - [place] [address] [place] [phone] Kristin Lutz MD [address] [facility] [address] [place] [phone] 03/04/2025 1:00 PM EDT Office Visit [facility]ology Oncology [address] [place] [phone] Samara Trujillo MD [address] [place] [address] documented as of this encounter Visit Diagnoses Diagnosis Type 2 diabetes mellitus without complication, without long-term current use of insulin (CMS/HCC)- Primary Lumbar spondylosis Lumbosacral spondylosis without myelopathy Hypertension, unspecified type Osteopenia determined by x-ray Hyperlipidemia, unspecified hyperlipidemia type Severe obesity (CMS/HCC) Morbid obesity 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, estrogen receptor positive (CMS/HCC) History of myocardial infarct at age greater than 60 years documented in this encounter Additional Health Concerns Assessment Noted Time A fall risk assessment has been complete d for the patient 06/11/2024 9:42 AM EST documented as of this encounter Care Teams Prawn Trawler Hand Relationship Specialty Start Date End Date Kristin Lutz MD [address] [phone] PCP - General Internal Medicine 05/22/18 documented as of this encounter
--- OUTSIDE RECORDS SUMMARY | 2024-08-29 10:18 | XMS_ITS | Clinical Summary ---
Author Organization [facility] Address [address] [place] [address] Phone Care Team Providers Care [employer] Teacher Name Role Phone Geeta Lutz MD Primary Care Provider [phone] Allergies No known active allergies Medications aspirin 81 mg EC tablet Take 1 tablet (81 mg total) by mouth 1 (one) time. 1 Active blood-glucose meter misc 1 Device by Not Applicable route. 3 Active diclofenac (VOLTAREN) 1 % topical gel Apply 1 Dose topically. 3 Active latanoprost (XALATAN) 0.005 % ophthalmic solution Administer 1 drop into both eyes at bedtime. Active glucose blood test strip 1 each. 3 Active lancets lancets Dx: e11.9 Check blood sugars two times daily 3 Active sacubitriL-valsar german (Entresto) 24-26 mg per tablet Take 1 tablet by mouth 2 (two) times a day. Active acetaminophen (TYLENOL) 500 mg tablet Take by mouth every 6 (six) hours if needed for mild pain. Active calcium carbonate-vit D3-min 600 mg-10 mcg (400 unit) tablet Take 1 tablet by mouth 2 (two) times a day. 180 tablet 3 4 Active amoxicillin (AMOXIL) 500 mg capsule Take 1 capsule (500 mg total) by mouth every 12 (twelve) hours. Active metoprolol succinate (TOPROL-XL) 50 mg 24 hr tablet TAKE 1 TABLET BY MOUTH EVERY DAY 90 tablet 3 5 Active atorvastatin (LIPITOR) 80 mg tablet TAKE 1 TABLET BY MOUTH EVERYDAY AT BEDTIME 90 tablet 3 5 Active metFORMIN (GLUCOPHAGE) 500 mg tablet TAKE 1 TABLET BY MOUTH TWICE A DAY WITH MEALS 180 tablet 1 5 Active Jardiance 10 mg tabletIndications :Type 2 diabetes mellitus without complications (CMS/HCC) TAKE 1 TABLET BY MOUTH EVERY DAY 90 tablet 3 5 Active albuterol HFA (PROAIR HFA ; PROVENTIL HFA ; VENTOLIN HFA) 90 mcg/actuation inhaler INHALE 2 PUFFS INHALATION EVERY 6 HOURS NEEDED FOR WHEEZING/SHORT NESS OF BREATH 4 Active acetaminophen (TYLENOL 8 HOUR) 650 mg 8 hr tablet PLEASE SEE ATTACHED FOR DETAILED DIRECTIONS 5 Active tobramycin-dexAME THasone (TOBRADEX) ophthalmic suspension PLACE 1 DROP INTO BOTH EYES EVERY 4 HOURS (WHILE AWAKE). 4 Active ibuprofen (ADVIL,MOTRIN) 400 mg tablet TAKE 1 TABLET BY MOUTH EVERY 6 HOURS NEEDED FOR MODERATE PAIN FOR UP TO 10 DAYS 4 Active calcium carbonate-vitamin D3 600 mg-5 mcg (200 unit) per tablet Take 1 tablet by mouth 2 times daily. 5 Active Active Problems Problem Noted Date Diagnosed Date Malignant neoplasm of upper- inner quadrant of left breast in female, estrogen receptor positive 05/28/2024 Cancer Staging:Pathologic stage from 05/03/2024:Stage IA(pT1c, pN1mi(sn), cM0, G2, ER+, IN+, HER2-, Oncotype DX score: 16) - Signed by Cliff Reyes MD on 05/28/2024 Acute URI 05/25/2024 Hypertension 05/20/2024 Diabetes mellitus 05/20/2024 Cervical radiculopathy at C7 07/09/2022 Overview (08/22/2024): Last Assessment & Plan: Ms. Naylor describes worsening pain in the neck with radiation in the right arm in a C7 or C8 distribution. She would like to go to physical therapy and I think this is reasonable. We have set up a prescription with cervical traction. Last Assessment & Plan: Ms. Naylor describes worsening pain in the neck with radiation in the right arm in a C7 or C8 distribution. She would like to go to physical therapy and I think this is reasonable. We have set up a prescription with cervical traction. Lumbar spondylosis 07/14/2021 Overview (08/22/2024): Last Assessment & Plan: Ms. Naylor describes a return of her low back pain and radiation to the bilateral buttocks and posterior lateral thighs. This isher typical pain and she usually gets relief from L5-S1 epidural steroid injections. Her strong preference is to follow-up with Dr. Harris who is recently moved from [facility]. We will try to arrange for her to get follow-up with Dr. Harris. Last Assessment & Plan: Ms. Naylor describes a return of her low back pain and radiation to the bilateral buttocks and posterior lateral thighs. This isher typical pain and she usually gets relief from L5-S1 epidural steroid injections. Her strong preference is to follow-up with Dr. Harris who is recently moved from [facility]. We will try to arrange for her to get follow-up with Dr. Harris. History of myocardial infarct at age greater blanka n 58 years 01/22/2021 Osteopenia determined by x-ray 08/06/2020 HLD (hyperlipidemia) 12/16/2017 Type 2 diabetes mellitus without complication Benign essential hypertension 08/10/2017 Sciatica 09/12/2013 Glaucoma 09/12/2013 Severe obesity 03/19/2013 Encounters Date Type Department Care Team Description 08/28/2024 10:00 AM EST Hospital Encounter [facility] Radiation Oncology [address] [facility] 2nd [place] [address] Anjelica Fritz NP 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, estrogen receptor positive (CMS/HCC) (Primary Dx) 08/22/2024 Telephone Internal Medicine - [place] [address] [facility] [address] [place] [address] Ivonne Ambrose MA faxed form (Klood) 08/21/2024 1:00 PM EST Office Visit [facility] Hematology Oncology [address] [place] [address] Samara Trujillo MD 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, estrogen receptor positive (CMS/HCC) (Primary Dx) 08/20/2024 3:00 PM EST Office Visit Internal Medicine - [place] [address] [facility] [address] [place] [address] Hao Michelle NP Type 2 diabetes mellitus without complication, without long-term current use of insulin (CMS/HCC) (Primary Dx); Lumbar spondylosis; Hypertension, unspecified type; Osteopenia determined by x-ray; Hyperlipidemia, unspecified hyperlipidemia type; Severe obesity (CMS/HCC); 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, estrogen receptor positive (CMS/HCC); History of myocardial infarct at age greater than 60 years 07/30/2024 10:05 AM EST - 07/30/2024 11:59 PM EST Hospital Encounter [facility] Radiation Oncology [address] [place] [phone] Bailey Monique MD 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, estrogen receptor positive (CMS/HCC) (Primary Dx) Discharge Disposition: Home or Self Care 07/30/2024 9:23 AM EST - 07/30/2024 11:59 PM EST Hospital Encounter [facility] Radiation Oncology [address] [place] [phone] Discharge Disposition: Home or Self Care 07/27/2024 9:34 AM EST - 07/27/2024 11:59 PM EST Hospital Encounter [facility] Radiation Oncology [address] [place] [phone] Discharge Disposition: Home or Self Care 07/26/2024 9:32 AM EST - 07/26/2024 11:59 PM EST Hospital Encounter [facility] Radiation Oncology [address] [place] [phone] Discharge Disposition: Home or Self Care 07/25/2024 11:05 AM EST - 07/25/2024 11:59 PM EST Hospital Encounter [facility] Radiation Oncology [address] [place] [phone] Jc Silver MD Discharge Disposition: Home or Self Care 07/25/2024 10:40 AM EST - 07/25/2024 11:59 PM EST Hospital Encounter [facility] Radiation Oncology [address] [place] [phone] Discharge Disposition: Home or Self Care 07/24/2024 9:37 AM EST - 07/24/2024 11:59 PM EST Hospital Encounter [facility] Radiation Oncology [address] [place] [phone] Discharge Disposition: Home or Self Care 07/23/2024 9:59 AM EST - 07/23/2024 11:59 PM EST Hospital Encounter [facility] Radiation Oncology [address] [place] [phone] Jc Silver MD 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, estrogen receptor positive (CMS/HCC) (Primary Dx) Discharge Disposition: Home or Self Care 07/23/2024 9:38 AM EST - 07/23/2024 11:59 PM EST Hospital Encounter [facility] Radiation Oncology [address] [place] [phone] Discharge Disposition: Home or Self Care 07/23/2024 [place] [facility] - [place] [address] [facility] [address] [place] [address] Geeta Lutz MD [place]: Lab work 07/20/2024 9:35 AM EST - 07/20/2024 11:59 PM EST Hospital Encounter [facility] Radiation Oncology [address] [place] [phone] Discharge Disposition: Home or Self Care 07/19/2024 9:40 AM EST - 07/19/2024 11:59 PM EST Hospital Encounter [facility] Radiation Oncology [address] [place] [phone] Discharge Disposition: Home or Self Care 07/18/2024 9:40 AM EST - 07/18/2024 11:59 PM EST Hospital Encounter [facility] Radiation Oncology [address] [place] [phone] Discharge Disposition: Home or Self Care 07/17/2024 9:37 AM EST - 07/17/2024 11:59 PM EST Hospital Encounter [facility] Radiation Oncology [address] [place] [phone] Discharge Disposition: Home or Self Care 07/16/2024 2:00 PM EST - 07/16/2024 11:59 PM EST Hospital Encounter [facility] Radiation Oncology [address] [place] [phone] Discharge Disposition: Home or Self Care 07/16/2024 10:05 AM EST - 07/16/2024 11:59 PM EST Hospital Encounter [facility] Radiation Oncology [address] [place] [phone] Bailey Monique MD 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, estrogen receptor positive (CMS/HCC) (Primary Dx) Discharge Disposition: Home or Self Care 07/16/2024 9:40 AM EST - 07/16/2024 11:59 PM EST Hospital Encounter [facility] Radiation Oncology [address] [place] [phone] Discharge Disposition: Home or Self Care 07/13/2024 9:40 AM EST - 07/13/2024 11:59 PM EST Hospital Encounter [facility]iation Oncology [address] [place] [phone] Discharge Disposition: Home or Self Care 07/12/2024 9:41 AM EST - 07/12/2024 11:59 PM EST Hospital Encounter [facility] Radiation Oncology [address] [place] [phone] Discharge Disposition: Home or Self Care 07/11/2024 9:37 AM EST - 07/11/2024 11:59 PM EST Hospital Encounter [facility]iation [facility] [address] [place] [phone] Discharge Disposition: Home or Self Care 07/10/2024 9:39 AM EST - 07/10/2024 11:59 PM EST Hospital Encounter [facility] Radiation [facility]cology [address] [place] [phone] Discharge Disposition: Home or Self Care 07/09/2024 10:05 AM EST - 07/09/2024 11:59 PM EST Hospital Encounter [facility] Radiation Oncology [address] [place] [phone] Bailey Monique MD 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, estrogen receptor positive (CMS/HCC) (Primary Dx) Discharge Disposition: Home or Self Care 07/09/2024 9:36 AM EST - 07/09/2024 11:59 PM EST Hospital Encounter [facility] Radiation Oncology [address] [place] [phone] Discharge Disposition: Home or Self Care 07/06/2024 9:39 AM EST - 07/06/2024 11:59 PM EST Hospital Encounter [facility] Radiation Oncology [address] [place] [phone] Discharge Disposition: Home or Self Care 07/05/2024 9:43 AM EST - 07/05/2024 11:59 PM EST Hospital Encounter [facility] Radiation Oncology [address] [place] [phone] Discharge Disposition: Home or Self Care 07/04/2024 10:57 AM EST - 07/04/2024 11:59 PM EST Hospital Encounter [facility] Radiation Oncology [address] [place] [phone] Discharge Disposition: Home or Self Care 07/03/2024 11:45 AM EST - 07/03/2024 11:59 PM EST Hospital Encounter [facility] Radiation Oncology [address] [place] [phone] Cliff Reyes MD 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, estrogen receptor positive (CMS/HCC) (Primary Dx) Discharge Disposition: Home or Self Care 07/03/2024 11:22 AM EST - 07/03/2024 11:59 PM EST Hospital Encounter [facility] Radiation Oncology [address] [place] [phone] Discharge Disposition: Home or Self Care 06/25/2024 9:04 AM EST - 06/25/2024 11:59 PM EST Hospital Encounter [facility] Radiation Oncology [address] [place] [phone] Discharge Disposition: Home or Self Care 06/21/2024 1:00 PM EST - 06/21/2024 11:59 PM EST Hospital Encounter [facility] Radiation Oncology [address] [place] [phone] Cliff Reyes MD 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, estrogen receptor positive (CMS/HCC) (Primary Dx) Discharge Disposition: Home or Self Care 06/21/2024 12:15 PM EST - 06/21/2024 11:59 PM EST Hospital Encounter [facility] Radiation Oncology [address] [place] [phone] 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, estrogen receptor positive (CMS/HCC) (Primary Dx) Discharge Disposition: Home or Self Care 06/15/2024 2:00 PM EST Office Visit [facility] Hematology Oncology [address] [place] [phone] Samara Trujillo MD 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, estrogen receptor positive (CMS/HCC) (Primary Dx) 06/13/2024 7:49 AM EST - 06/13/2024 11:59 PM EST Hospital Encounter [facility] Bone Density [address] [place] [phone] Invasive lobular carcinoma of breast, stage 1, left (CMS/HCC) Discharge Disposition: Home or Self Care 06/11/2024 9:06 AM EST - 06/11/2024 11:59 PM EST Hospital Encounter [facility] Radiation Oncology [address] [place] [address] [place] [phone] Jc Silver MD 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, estrogen receptor positive (CMS/HCC) (Primary Dx); Breast cancer (CMS/HCC) Discharge Disposition: Home or Self Care 06/11/2024 9:04 AM EST - 06/11/2024 11:59 PM EST Hospital Encounter [facility] Radiation Oncology [address] [phone] Discharge Disposition: Home or Self Care 06/04/2024 Telephone [facility] Radiation Oncology [address] [place] [phone] Bri Lagunas MA 06/04/2024 Telephone [facility] Hematology Oncology [address] [place] [phone] Samara Trujillo MD 06/01/2024 Telephone [facility] Hematology Oncology [address] [place] [phone] Guilherme Pelletier MA from Last 3 Months Immunizations Name Administration Dates Next Due Influenza Quadravalent, MDCK , 0.5ml, preservative free (Flucelvax) 6mo and older 04/28/2022,05/29/2019 Influenza trivalent, with pr eservative (Fluzone; Afluria) 6mo and older 03/07/2020,06/29/2013 Influenza, Unspecified 07/13/2021 [employer] SARS-CoV-2 COVID-19, mRNA, LNP-S, preservative free 04/14/2021,09/01/2020,08/11/2020 Pneumococcal conjugate 13 va lent (Prevnar 13, PCV13) 2mo and older 04/29/2016 Pneumococcal conjugate 20 va lent (Prevnar 20, PCV 20) 2mo and older 01/03/2024 Tdap Tetanus diptheria acell ular pertussis (Boostrix; Adacel) 7yo and older 09/05/2008 Zoster Live 07/13/2021 Surgical History Surgery Date Site/Laterality Comments OTHER SURGICAL HISTORY COLONOSCOPY MICRODISCECTOMY LUMBAR CATARACT EXTRACTION ORIF ANKLE FRACTURE CORONARY STENT PLACEMENT CARDIAC CATHETERIZATION BREAST SURGERY 05/02/2024 Left breast magnetic seed localized partial mastectomy, sentinel node biopsy Medical History Medical History Date Comments Myocardial infarction (CMS/HCC) Hypertension Hyperlipidemia Glaucoma Diabetes mellitus (CMS/HCC) Cancer (CMS/HCC) Arthritis Family History Medical History Relation Name Comments Adrenal disorder Other 1 Breast cancer Other 2 Relation Name Status Comments Other 1 Other 2 Alive Social History Tobacco Use Types Packs/Day Years Used Date Smoking Tobacco: Every Day Cigarettes 0.1 40.2 Started: 1984 Smokeless Tobacco: Never Tobacco Cessation:Ready to Q uit: Not Asked; Counseling Given: Not Answered Alcohol Use Standard Drinks/Week Comments Not Currently [...] PM EDT Sexual Orientation Not on file Obstetrics History Para Term AB IAB SAB Ectopic Multiple Livin g Live Births 2 0 0 0 2 0 0 0 Date Outcome GA Total Labor Labor/2nd/3rd Weight Sex Type Anes PTL Martine A1 A5 Name Clin AB AB Last Filed Vital Signs Vital Sign Reading [...] Mass Index 40.18 08/28/2024 10:10 AM EST Plan of Treatment Upcoming Encounters Date Type Department Care Team (Late st Contact Info) Description 09/04/2024 11:00 AM EDT Office Visit Breast [facility] [address] [facility] [address] [place] [address] Dio Ram MD [address] [facility] [address] [place] [address] 02/19/2025 9:30 AM EDT Office Visit Internal Medicine - [place] [address] [facility] [address] [place] [phone] Geeta Lutz MD [address] [facility] [address] [place] [phone] 03/04/2025 1:00 PM EDT Office Visit [facility] Hematology Oncology [address] [place] [phone] Samara Trujillo MD [address] [place] [address] Health Maintenance Due Date Last Done Comments Diabetes: Annual Foot Exam 03/19/2014 03/19/2013 Diabetes: Annual Retina Eye Exam 09/07/2014 09/07/2013 RSV Immunization Patients 60+ Years Old (1 - Risk 60-74 years 1-dose series) 2018 DTaP,Tdap,and Td Vaccines (2 - Td or Tdap) 09/05/2018 09/05/2008 Zoster Vaccines (1 of 2) 09/07/2021 07/13/2021 Hepatitis C Screening 06/05/2022 Medicare Annual Wellness Visit 06/05/2022 Social Influencers of Health Screening 06/05/2022 Diabetes: Annual Urine Albumin-Creatinine Ratio (uACR) 10/23/2022 10/23/2021 Depression Screening 11/05/2022 11/05/2021 Colorectal Cancer Screening: Colonoscopy 11/28/2023 11/27/2013 COVID-19 Vaccine ( season) 2024 04/14/2021, 09/01/2020, 08/11/2020 Influenza Vaccine (#1) 2024 , 07/13/2021, 03/07/2020, Additional history exists Diabetes: Blood Sugar Control Test (HGBA1C) 01/24/2025 07/27/2024, 08/17/2023 Falls Risk Assessment 06/11/2025 06/11/2024 Diabetes: Annual GFR (Glomerular Filtration Rate) 07/27/2025 07/27/2024 Hypertension/CHF/CAD Annual BMP Blood Test 07/27/2025 07/27/2024 Breast Cancer Screening 03/01/2026 03/01/20 24, 03/01/2024, 10/01/2022, Additional history exists Osteoporosis Screening (Bone Density Screening) 06/13/2029 06/13/2024, 07/17/2020 Cholesterol Screening (Lipid Panel) 07/27/2029 07/27/2024, 08/17/2023 Pneumococcal Vaccine: 50+ Years Completed 01/03/2024, 04/29/2016 HIB Vaccines Aged Out No longer eligi ble based on patient's age to complete this topic HPV Vaccines Aged Out No longer eligi ble based on patient's age to complete this topic Hepatitis A Vaccines Aged Out No long er eligible based on patient's age to complete this topic Hepatitis B Vaccines Aged Out No long er eligible based on patient's age to complete this topic IPV Vaccines Aged Out No longer eligi ble based on patient's age to complete this topic MMR Vaccines Aged Out No longer eligi ble based on patient's age to complete this topic Meningococcal ACWY Vaccine Aged Out N o longer eligible based on patient's age to complete this topic Meningococcal B Vacine Aged Out No lo nger eligible based on patient's age to complete this topic RSV Immunization Patients Under 20 months Aged Out No longer eligible based on patient's age to complete this topic Varicella Vaccines Aged Out No longer eligible based on patient's age to complete this topic Medical Devices Implanted Type Area Sterile Products Processor Device Identifier Shelf Expiration Date Model / Serial / Lot Marker 18ga Magseed 7cm - [id number] Implanted:Qty: 1 on 04/30/2024 by Annetta Kang MD at [facility] Imaging Implants Left: Breast [employer] 02/24/2027 [id number] / / Procedures Procedure Name Priority Date/Time Associated Diagnosis Comments RAD ONC MSQ TREATMENT SUMMARY Routine 07/30/2024 10:09 AM EST RAD ONC MSQ TREATMENT SUMMARY Routine 07/27/2024 10:11 AM EST COMPREHENSIVE METABOLIC PANEL Routine 07/27/2024 9:30 AM EST Type 2 diabetes mellitus without complication, without long-term current use of insulin (CMS/HCC) Primary hypertension LIPID PANEL WITH REFLEX TO DIRECT LDL Routine 07/27/2024 9:30 AM EST Type 2 diabetes mellitus without complication, without long-term current use of insulin (CMS/HCC) Primary hypertension HEMOGLOBIN A1C Routine 07/27/2024 9:30 AM EST Type 2 diabetes mellitus without complication, without long-term current use of insulin (CMS/HCC) Primary hypertension RAD ONC MSQ TREATMENT SUMMARY Routine 07/26/2024 9:51 AM EST RAD ONC MSQ TREATMENT SUMMARY Routine 07/25/2024 11:11 AM EST RAD ONC MSQ TREATMENT SUMMARY Routine 07/24/2024 10:02 AM EST RAD ONC MSQ TREATMENT SUMMARY Routine 07/23/2024 9:59 AM EST RAD ONC MSQ TREATMENT SUMMARY Routine 07/20/2024 10:14 AM EST RAD ONC MSQ TREATMENT SUMMARY Routine 07/19/2024 10:11 AM EST RAD ONC MSQ TREATMENT SUMMARY Routine 07/18/2024 10:03 AM EST RAD ONC MSQ TREATMENT SUMMARY Routine 07/17/2024 10:10 AM EST RAD ONC MSQ TREATMENT SUMMARY Routine 07/16/2024 10:10 AM EST RAD ONC MSQ TREATMENT SUMMARY Routine 07/13/2024 10:12 AM EST RAD ONC MSQ TREATMENT SUMMARY Routine 07/12/2024 10:09 AM EST RAD ONC MSQ TREATMENT SUMMARY Routine 07/11/2024 10:03 AM EST RAD ONC MSQ TREATMENT SUMMARY Routine 07/10/2024 10:00 AM EST RAD ONC MSQ TREATMENT SUMMARY Routine 07/09/2024 10:08 AM EST RAD ONC MSQ TREATMENT SUMMARY Routine 07/06/2024 10:13 AM EST RAD ONC MSQ TREATMENT SUMMARY Routine 07/05/2024 10:15 AM EST RAD ONC MSQ TREATMENT SUMMARY Routine 07/04/2024 11:22 AM EST RAD ONC MSQ TREATMENT SUMMARY Routine 07/03/2024 11:52 AM EST BD BONE DENSITY DXA AXIAL SKELETON Routine 06/13/2024 8:10 AM EST Invasive lobular carcinoma of breast, stage 1, left (CMS/HCC) GATITO SCREENING DIGITAL Routine 03/01/2024 2:56 PM EDT Encounter for screening mammogram for malignant neoplasm of breast from Last 3 Months or Most Recently Relevant to Health Maintenance Results * Rad Onc Msq Treatment Summary [...] RADIATION ONCOLOGY 07/30/2024 10:0 9 AM EST Physician Radiation Oncology MD RADIATION ONCOLO GY ORDERABLES Final Result [facility] RADIATION ONCOLOGY * Rad Onc Msq Treatment Summary (07/27/2024 10:11 AM EST) Treatment Site left breast boost MOSAIQ RADIATION ONCOLOGY Course Number 1 MOSAIQ RADIATION ONCOLOGY Prescribed Fractional Dose 250 cGray MOSAIQ RADIATION ONCOLOGY Prescribed Total Dose 1,000 cGray MOSAIQ RADIATION ONCOLOGY Actual Fractions Delivered 3 MOSAIQ RADIATION ONCOLOGY Prescription Pattern Comment Vision MOSAIQ RADIATION ONCOLOGY Actual Session Delivered Dose 251 cGray MOSAIQ RADIATION ONCOLOGY Actual Total Dose 753 cGray MOSAIQ RADIATION ONCOLOGY Prescribed Technique NORTH/LPO MOSAIQ RADIATION ONCOLOGY Elapsed Days 2 MOSAIQ RADIATION ONCOLOGY Start Date 07/25/2024 MOS[facility]Q RADIATION ONCOLOGY Last Date 07/27/2024 MOS[facility]Q RADIATION ONCOLOGY Prescribed Number of Fractions 4 MOSAIQ RADIATION ONCOLOGY 07/27/2024 10:1 1 AM EST Result [facility] Physician Radiation Oncology RADIATION ONCOLO GY ORDERABLES Final Result Performing Organization Address City/[facility] Co de Phone Number MOSAIQ RADIATION ONCOLOGY * Lipid panel with reflex to direct LDL (07/27/2024 9:30 AM EST) Cholesterol 139 0 - 200 mg/dL LAB CHEMISTRY METHOD 07/27/2024 11:44 AM [facility] Triglycerides 130 0 - 150 mg/dL LAB CHEMISTRY METHOD 07/27/2024 11:44 AM [facility] HDL 43 >=40 mg/dL LAB CHEMISTRY METHOD 07/27/2024 11:44 AM [facility] LDL Calculated 70 0 - 100 mg/dL LAB CHEMISTRY METHOD 07/27/2024 11:44 AM [facility] VLDL Cholesterol Olegario 26 mg/dL LAB CHEMISTRY METHOD 07/27/2024 11:44 AM [facility] Non HDL Chol. (LDL+VLDL) 96 <145 mg/dL LAB CHEMISTRY METHOD 07/27/2024 11:44 AM [facility] Chol/HDL Ratio 3.2 0.0 - 4.4 LAB CHEMISTRY METHOD 07/27/2024 11:44 AM EST [facility] Blood Venous blood specimen / Unknown Venipuncture / Unknown 07/27/2024 9:30 AM EST 07/27/2024 11:16 AM EST Geeta Lutz MD LAB BLOOD ORDERABLES Final Res ult Performing Organization Address [facility]/ZIP Pr de Phone Number [facility] [address] [place] [address], [place] [phone] * (ABNORMAL) Hemoglobin A1c (07/27/2024 9:30 AM EST) Hemoglobin A1C 6.7(H) <6.5 % LAB CHEMISTRY METHOD 07/27/2024 9:14 PM EST [facility] Mean Bld Glu Estim. 146 mg/dL LAB CHEMISTRY METHOD 07/27/2024 9:14 PM EST [facility] Blood Venous blood specimen / Unknown Venipuncture / Unknown 07/27/2024 9:30 AM EST 07/27/2024 11:17 AM EST us Geeta Lutz MD LAB BLOOD ORDERABLES Final Res ult Performing Organization Address [facility] de Phone Number [facility] [address] [place] [address], [place] [phone] * (ABNORMAL) Comprehensive metabolic panel (07/27/2024 9:30 AM EST) Sodium 138 133 - 145 mmol/L LAB CHEMISTRY METHOD 07/27/2024 11:44 AM EST [facility] Potassium 4.0 3.5 - 5.5 mmol/L LAB CHEMISTRY METHOD 07/27/2024 11:44 AM EST [facility] Chloride 108 96 - 110 mmol/L LAB CHEMISTRY METHOD 07/27/2024 11:44 AM EST [facility] CO2 23 21 - 32 mmol/L LAB CHEMISTRY METHOD 07/27/2024 11:44 AM [facility] Anion Gap 7 3 - 11 LAB CHEMISTRY METHOD 07/27/2024 11:44 AM [facility] Glucose 173(H) 70 - 100 mg/dL LAB CHEMISTRY METHOD 07/27/2024 11:44 AM [facility] BUN 20 5 - 25 mg/dL LAB CHEMISTRY METHOD 07/27/2024 11:44 AM [facility] Creatinine 1.01 0.50 - 1.10 mg/dL LAB CHEMISTRY METHOD 07/27/2024 11:44 AM [facility] eGFR 62 >=60 mL/min/1. 73m2 LAB CHEMISTRY METHOD 07/27/2024 11:44 AM [facility] Comment:Calculation based on the??Chronic Kidney Disease Epidemiology Collaboration (CKD-EPI) equation refit??without adjustment for race. BUN/Creatinine Ratio 19.8 LAB CHEMISTRY METHOD 07/27/2024 11:44 AM [facility] Calcium 9.6 8.5 - 10.5 mg/dL LAB CHEMISTRY METHOD 07/27/2024 11:44 AM [facility] AST (SGOT) 18 10 - 42 unit/L LAB CHEMISTRY METHOD 07/27/2024 11:44 AM [facility] ALT (SGPT) 34 10 - 60 unit/L LAB CHEMISTRY METHOD 07/27/2024 11:44 AM [facility] Alkaline Phosphatase 68 42 - 121 unit/L LAB CHEMISTRY METHOD 07/27/2024 11:44 AM [facility] Total Protein 7.0 6.0 - 8.0 g/dL LAB CHEMISTRY METHOD 07/27/2024 11:44 AM [facility] Albumin 3.9 3.2 - 5.0 g/dL LAB CHEMISTRY METHOD 07/27/2024 11:44 AM [facility] Total Bilirubin 0.4 0.0 - 1.4 mg/dL LAB CHEMISTRY METHOD 07/27/2024 11:44 AM EST [facility] Blood Venous blood specimen / Unknown Venipuncture / Unknown 07/27/2024 9:30 AM EST 07/27/2024 11:16 AM EST Geeta Lutz MD LAB BLOOD ORDERABLES Final Res ult [facility] [address] [place] [address], [place] [phone] * Rad Onc Msq Treatment Summary (07/26/2024 9:51 AM EST) Treatment Site left breast boost MOSAIQ RADIATION ONCOLOGY Course Number 1 MOSAIQ RADIATION ONCOLOGY Prescribed Fractional Dose 250 cGray MOSAIQ RADIATION ONCOLOGY Prescribed Total Dose 1,000 cGray MOSAIQ RADIATION ONCOLOGY Actual Fractions Delivered 2 MOSAIQ RADIATION ONCOLOGY Prescription Pattern Comment Vision MOSAIQ RADIATION ONCOLOGY Actual Session Delivered Dose 251 cGray MOSAIQ RADIATION ONCOLOGY Actual Total Dose 502 cGray MOSAIQ RADIATION ONCOLOGY Prescribed Technique NORTH/LPO MOSAIQ RADIATION ONCOLOGY Elapsed Days 1 MOSAIQ RADIATION ONCOLOGY Start Date 07/25/2024 MOSAIQ RADIATION ONCOLOGY Last Date 07/26/2024 MOSAIQ RADIATION ONCOLOGY Prescribed Number of Fractions 4 MOSAIQ RADIATION ONCOLOGY 07/26/2024 9:51 AM EST Physician Radiation Oncology RADIATION ONCOLO GY ORDERABLES Final Result MOSAIQ RADIATION ONCOLOGY * Rad Onc Msq Treatment Summary (07/25/2024 11:11 AM EST) Treatment Site left breast boost MOSAIQ RADIATION ONCOLOGY Course Number 1 MOSAIQ RADIATION ONCOLOGY Prescribed Fractional Dose 250 cGray MOSAIQ RADIATION ONCOLOGY Prescribed Total Dose 1,000 cGray MOSAIQ RADIATION ONCOLOGY Actual Fractions Delivered 1 MOSAIQ RADIATION ONCOLOGY Prescription Pattern Comment Vision MOSAIQ RADIATION ONCOLOGY Actual Session Delivered Dose 251 cGray MOSAIQ RADIATION ONCOLOGY Actual Total Dose 251 cGray MOSAIQ RADIATION ONCOLOGY Prescribed Technique NORTH/LPO MOSAIQ RADIATION ONCOLOGY Elapsed Days 0 MOSAIQ RADIATION ONCOLOGY Start Date 07/25/2024 MOSAIQ RADIATION ONCOLOGY Last Date 07/25/2024 MOSAIQ RADIATION ONCOLOGY Prescribed Number of Fractions 4 MOSAIQ RADIATION ONCOLOGY 07/25/2024 11:1 1 AM EST Physician Radiation Oncology RADIATION ONCOLO GY ORDERABLES Final Result MOSAIQ RADIATION ONCOLOGY * Rad Onc Msq Treatment Summary (07/24/2024 10:02 AM EST) Treatment Site left breast MOS AIQ RADIATION ONCOLOGY Course Number 1 MOSAIQ RADIATION ONCOLOGY Prescribed Fractional Dose 266 cGray MOSAIQ RADIATION ONCOLOGY Prescribed Total Dose 4,256 cGray MOSAIQ RADIATION ONCOLOGY Actual Fractions Delivered 16 MOSAIQ RADIATION ONCOLOGY Prescription Pattern Comment free breathing MOSAIQ RADIATION ONCOLOGY Actual Session Delivered Dose 267 cGray MOSAIQ RADIATION ONCOLOGY Actual Total Dose 4,272 cGray MOSAIQ RADIATION ONCOLOGY Prescribed Technique Tangents MOSAIQ RADIATION ONCOLOGY Elapsed Days 21 MOSAIQ RADIATION ONCOLOGY Start Date 07/03/2024 MOSAIQ RADIATION ONCOLOGY Last Date 07/24/2024 MOSAIQ RADIATION ONCOLOGY Prescribed Number of Fractions 16 MOSAIQ RADIATION ONCOLOGY 07/24/2024 10:0 2 AM EST Physician Radiation Oncology RADIATION ONCIMER GY ORDERABLES Final Result MOSAIQ RADIATION ONCOLOGY * Rad Onc Msq Treatment Summary (07/23/2024 9:59 AM EST) Treatment Site left breast MOS AIQ RADIATION ONCOLOGY Course Number 1 MOSAIQ RADIATION ONCOLOGY Prescribed Fractional Dose 266 cGray MOSAIQ RADIATION ONCOLOGY Prescribed Total Dose 4,256 cGray MOSAIQ RADIATION ONCOLOGY Actual Fractions Delivered 15 MOSAIQ RADIATION ONCOLOGY Prescription Pattern Comment free breathing MOSAIQ RADIATION ONCOLOGY Actual Session Delivered Dose 267 cGray MOSAIQ RADIATION ONCOLOGY Actual Total Dose 4,005 cGray MOSAIQ RADIATION ONCOLOGY Prescribed Technique Tangents MOSAIQ RADIATION ONCOLOGY Elapsed Days 20 MOSAIQ RADIATION ONCOLOGY Start Date 07/03/2024 MOSAIQ RADIATION ONCOLOGY Last Date 07/23/2024 MOSAIQ RADIATION ONCOLOGY Prescribed Number of Fractions 16 MOSAIQ RADIATION ONCOLOGY 07/23/2024 9:59 AM EST Physician Radiation Oncology RADIATION ONCOLO GY ORDERABLES Final Result MOSAIQ RADIATION ONCOLOGY * Rad Onc Msq Treatment Summary (07/20/2024 10:14 AM EST) Treatment Site left breast MOS AIQ RADIATION ONCOLOGY Course Number 1 MOSAIQ RADIATION ONCOLOGY Prescribed Fractional Dose 266 cGray MOSAIQ RADIATION ONCOLOGY Prescribed Total Dose 4,256 cGray MOSAIQ RADIATION ONCOLOGY Actual Fractions Delivered 14 MOSAIQ RADIATION ONCOLOGY Prescription Pattern Comment free breathing MOSAIQ RADIATION ONCOLOGY Actual Session Delivered Dose 267 cGray MOSAIQ RADIATION ONCOLOGY Actual Total Dose 3,738 cGray MOSAIQ RADIATION ONCOLOGY Prescribed Technique Tangents MOSAIQ RADIATION ONCOLOGY Elapsed Days 17 MOSAIQ RADIATION ONCOLOGY Start Date 07/03/2024 MOSAIQ RADIATION ONCOLOGY Last Date 07/20/2024 MOSAIQ RADIATION ONCOLOGY Prescribed Number of Fractions 16 MOSAIQ RADIATION ONCOLOGY 07/20/2024 10:1 4 AM EST Physician Radiation Oncology RADIATION ONCOLO GY ORDERABLES Final Result MOSAIQ RADIATION ONCOLOGY * Rad Onc Msq Treatment Summary (07/19/2024 10:11 AM EST) Treatment Site left breast MOS AIQ RADIATION ONCOLOGY Course Number 1 MOSAIQ RADIATION ONCOLOGY Prescribed Fractional Dose 266 cGray MOSAIQ RADIATION ONCOLOGY Prescribed Total Dose 4,256 cGray MOSAIQ RADIATION ONCOLOGY Actual Fractions Delivered 13 MOSAIQ RADIATION ONCOLOGY Prescription Pattern Comment free breathing MOSAIQ RADIATION ONCOLOGY Actual Session Delivered Dose 267 cGray MOSAIQ RADIATION ONCOLOGY Actual Total Dose 3,471 cGray MOSAIQ RADIATION ONCOLOGY Prescribed Technique Tangents MOSAIQ RADIATION ONCOLOGY Elapsed Days 16 MOSAIQ RADIATION ONCOLOGY Start Date 07/03/2024 MOSAIQ RADIATION ONCOLOGY Last Date 07/19/2024 MOSAIQ RADIATION ONCOLOGY Prescribed Number of Fractions 16 MOSAIQ RADIATION ONCOLOGY 07/19/2024 10:1 1 AM EST Physician Radiation Oncology RADIATION ONCOLO GY ORDERABLES Final Result MOSAIQ RADIATION ONCOLOGY * Rad Onc Msq Treatment Summary (07/18/2024 10:03 AM EST) Treatment Site left breast MOS AIQ RADIATION ONCOLOGY Course Number 1 MOSAIQ RADIATION ONCOLOGY Prescribed Fractional Dose 266 cGray MOSAIQ RADIATION ONCOLOGY Prescribed Total Dose 4,256 cGray MOSAIQ RADIATION ONCOLOGY Actual Fractions Delivered 12 MOSAIQ RADIATION ONCOLOGY Prescription Pattern Comment free breathing MOSAIQ RADIATION ONCOLOGY Actual Session Delivered Dose 267 cGray MOSAIQ RADIATION ONCOLOGY Actual Total Dose 3,204 cGray MOSAIQ RADIATION ONCOLOGY Prescribed Technique Tangents MOSAIQ RADIATION ONCOLOGY Elapsed Days 15 MOSAIQ RADIATION ONCOLOGY Start Date 07/03/2024 MOSAIQ RADIATION ONCOLOGY Last Date 07/18/2024 MOSAIQ RADIATION ONCOLOGY Prescribed Number of Fractions 16 MOSAIQ RADIATION ONCOLOGY 07/18/2024 10:0 3 AM EST Physician Radiation Oncology RADIATION ONCOLO GY ORDERABLES Final Result MOSAIQ RADIATION ONCOLOGY * Rad Onc Msq Treatment Summary (07/17/2024 10:10 AM EST) Treatment Site left breast MOS AIQ RADIATION ONCOLOGY Course Number 1 MOSAIQ RADIATION ONCOLOGY Prescribed Fractional Dose 266 cGray MOSAIQ RADIATION ONCOLOGY Prescribed Total Dose 4,256 cGray MOSAIQ RADIATION ONCOLOGY Actual Fractions Delivered 11 MOSAIQ RADIATION ONCOLOGY Prescription Pattern Comment free breathing MOSAIQ RADIATION ONCOLOGY Actual Session Delivered Dose 267 cGray MOSAIQ RADIATION ONCOLOGY Actual Total Dose 2,937 cGray MOSAIQ RADIATION ONCOLOGY Prescribed Technique Tangents MOSAIQ RADIATION ONCOLOGY Elapsed Days 14 MOSAIQ RADIATION ONCOLOGY Start Date 07/03/2024 MOSAIQ RADIATION ONCOLOGY Last Date 07/17/2024 MOSAIQ RADIATION ONCOLOGY Prescribed Number of Fractions 16 MOSAIQ RADIATION ONCOLOGY 07/17/2024 10:1 0 AM EST Physician Radiation Oncology RADIATION ONCOLO GY ORDERABLES Final Result MOSAIQ RADIATION ONCOLOGY * Rad Onc Msq Treatment Summary (07/16/2024 10:10 AM EST) Treatment Site left breast MOS AIQ RADIATION ONCOLOGY Course Number 1 MOSAIQ RADIATION ONCOLOGY Prescribed Fractional Dose 266 cGray MOSAIQ RADIATION ONCOLOGY Prescribed Total Dose 4,256 cGray MOSAIQ RADIATION ONCOLOGY Actual Fractions Delivered 10 MOSAIQ RADIATION ONCOLOGY Prescription Pattern Comment free breathing MOSAIQ RADIATION ONCOLOGY Actual Session Delivered Dose 267 cGray MOSAIQ RADIATION ONCOLOGY Actual Total Dose 2,670 cGray MOSAIQ RADIATION ONCOLOGY Prescribed Technique Tangents MOSAIQ RADIATION ONCOLOGY Elapsed Days 13 MOSAIQ RADIATION ONCOLOGY Start Date 07/03/2024 MOSAIQ RADIATION ONCOLOGY Last Date 07/16/2024 MOSAIQ RADIATION ONCOLOGY Prescribed Number of Fractions 16 MOSAIQ RADIATION ONCOLOGY 07/16/2024 10:1 0 AM EST Physician Radiation Oncology RADIATION ONCIMER GY ORDERABLES Final Result Performing Organization Address City/[facility]/ZIP Co de Phone Number MOSAIQ RADIATION ONCOLOGY * Rad Onc Msq Treatment Summary (07/13/2024 10:12 AM EST) Treatment Site left breast MOS AIQ RADIATION ONCOLOGY Course Number 1 MOSAIQ RADIATION ONCOLOGY Prescribed Fractional Dose 266 cGray MOSAIQ RADIATION ONCOLOGY Prescribed Total Dose 4,256 cGray MOSAIQ RADIATION ONCOLOGY Actual Fractions Delivered 9 MOSAIQ RADIATION ONCOLOGY Prescription Pattern Comment free breathing MOSAIQ RADIATION ONCOLOGY Actual Session Delivered Dose 267 cGray MOSAIQ RADIATION ONCOLOGY Actual Total Dose 2,403 cGray MOSAIQ RADIATION ONCOLOGY Prescribed Technique Tangents MOSAIQ RADIATION ONCOLOGY Elapsed Days 10 MOSAIQ RADIATION ONCOLOGY Start Date 07/03/2024 MOSAIQ RADIATION ONCOLOGY Last Date 07/13/2024 MOSAIQ RADIATION ONCOLOGY Prescribed Number of Fractions 16 MOSAIQ RADIATION ONCOLOGY 07/13/2024 10:1 2 AM EST Physician Radiation Oncology RADIATION ONCIMER GY ORDERABLES Final Result MOSAIQ RADIATION ONCOLOGY * Rad Onc Msq Treatment Summary (07/12/2024 10:09 AM EST) Treatment Site left breast MOS AIQ RADIATION ONCOLOGY Course Number 1 MOSAIQ RADIATION ONCOLOGY Prescribed Fractional Dose 266 cGray MOSAIQ RADIATION ONCOLOGY Prescribed Total Dose 4,256 cGray MOSAIQ RADIATION ONCOLOGY Actual Fractions Delivered 8 MOSAIQ RADIATION ONCOLOGY Prescription Pattern Comment free breathing MOSAIQ RADIATION ONCOLOGY Actual Session Delivered Dose 267 cGray MOSAIQ RADIATION ONCOLOGY Actual Total Dose 2,136 cGray MOSAIQ RADIATION ONCOLOGY Prescribed Technique Tangents MOSAIQ RADIATION ONCOLOGY Elapsed Days 9 MOSAIQ RADIATION ONCOLOGY Start Date 07/03/2024 MOSAIQ RADIATION ONCOLOGY Last Date 07/12/2024 MOSAIQ RADIATION ONCOLOGY Prescribed Number of Fractions 16 MOSAIQ RADIATION ONCOLOGY 07/12/2024 10:0 9 AM EST Physician Radiation Oncology RADIATION ONCIMER GY ORDERABLES Final Result MOSAIQ RADIATION ONCOLOGY * Rad Onc Msq Treatment Summary (07/11/2024 10:03 AM EST) Treatment Site left breast MOS AIQ RADIATION ONCOLOGY Course Number 1 MOSAIQ RADIATION ONCOLOGY Prescribed Fractional Dose 266 cGray MOSAIQ RADIATION ONCOLOGY Prescribed Total Dose 4,256 cGray MOSAIQ RADIATION ONCOLOGY Actual Fractions Delivered 7 MOSAIQ RADIATION ONCOLOGY Prescription Pattern Comment free breathing MOSAIQ RADIATION ONCOLOGY Actual Session Delivered Dose 267 cGray MOSAIQ RADIATION ONCOLOGY Actual Total Dose 1,869 cGray MOSAIQ RADIATION ONCOLOGY Prescribed Technique Tangents MOSAIQ RADIATION ONCOLOGY Elapsed Days 8 MOSAIQ RADIATION ONCOLOGY Start Date 07/03/2024 MOSAIQ RADIATION ONCOLOGY Last Date 07/11/2024 MOSAIQ RADIATION ONCOLOGY Prescribed Number of Fractions 16 MOSAIQ RADIATION ONCOLOGY 07/11/2024 10:0 3 AM EST Physician Radiation Oncology RADIATION ONCIMER GY ORDERABLES Final Result MOSAIQ RADIATION ONCOLOGY * Rad Onc Msq Treatment Summary (07/10/2024 10:00 AM EST) Treatment Site left breast MOS AIQ RADIATION ONCOLOGY Course Number 1 MOSAIQ RADIATION ONCOLOGY Prescribed Fractional Dose 266 cGray MOSAIQ RADIATION ONCOLOGY Prescribed Total Dose 4,256 cGray MOSAIQ RADIATION ONCOLOGY Actual Fractions Delivered 6 MOSAIQ RADIATION ONCOLOGY Prescription Pattern Comment free breathing MOSAIQ RADIATION ONCOLOGY Actual Session Delivered Dose 267 cGray MOSAIQ RADIATION ONCOLOGY Actual Total Dose 1,602 cGray MOSAIQ RADIATION ONCOLOGY Prescribed Technique Tangents MOSAIQ RADIATION ONCOLOGY Elapsed Days 7 MOSAIQ RADIATION ONCOLOGY Start Date 07/03/2024 MOSAIQ RADIATION ONCOLOGY Last Date 07/10/2024 MOSAIQ RADIATION ONCOLOGY Prescribed Number of Fractions 16 MOSAIQ RADIATION ONCOLOGY 07/10/2024 10:0 0 AM EST Physician Radiation Oncology RADIATION ONCIMER GY ORDERABLES Final Result MOSAIQ RADIATION ONCOLOGY * Rad Onc Msq Treatment Summary (07/09/2024 10:08 AM EST) Treatment Site left breast MOS AIQ RADIATION ONCOLOGY Course Number 1 MOSAIQ RADIATION ONCOLOGY Prescribed Fractional Dose 266 cGray MOSAIQ RADIATION ONCOLOGY Prescribed Total Dose 4,256 cGray MOSAIQ RADIATION ONCOLOGY Actual Fractions Delivered 5 MOSAIQ RADIATION ONCOLOGY Prescription Pattern Comment free breathing MOSAIQ RADIATION ONCOLOGY Actual Session Delivered Dose 267 cGray MOSAIQ RADIATION ONCOLOGY Actual Total Dose 1,335 cGray MOSAIQ RADIATION ONCOLOGY Prescribed Technique Tangents MOSAIQ RADIATION ONCOLOGY Elapsed Days 6 MOSAIQ RADIATION ONCOLOGY Start Date 07/03/2024 MOSAIQ RADIATION ONCOLOGY Last Date 07/09/2024 MOSAIQ RADIATION ONCOLOGY Prescribed Number of Fractions 16 MOSAIQ RADIATION ONCOLOGY 07/09/2024 10:0 8 AM EST Physician Radiation Oncology RADIATION ONCIMER GY ORDERABLES Final Result MOSAIQ RADIATION ONCOLOGY * Rad Onc Msq Treatment Summary (07/06/2024 10:13 AM EST) Treatment Site left breast MOS AIQ RADIATION ONCOLOGY Course Number 1 MOSAIQ RADIATION ONCOLOGY Prescribed Fractional Dose 266 cGray MOSAIQ RADIATION ONCOLOGY Prescribed Total Dose 4,256 cGray MOSAIQ RADIATION ONCOLOGY Actual Fractions Delivered 4 MOSAIQ RADIATION ONCOLOGY Prescription Pattern Comment free breathing MOSAIQ RADIATION ONCOLOGY Actual Session Delivered Dose 267 cGray MOSAIQ RADIATION ONCOLOGY Actual Total Dose 1,068 cGray MOSAIQ RADIATION ONCOLOGY Prescribed Technique Tangents MOSAIQ RADIATION ONCOLOGY Elapsed Days 3 MOSAIQ RADIATION ONCOLOGY Start Date 07/03/2024 MOSAIQ RADIATION ONCOLOGY Last Date 07/06/2024 MOSAIQ RADIATION ONCOLOGY Prescribed Number of Fractions 16 MOSAIQ RADIATION ONCOLOGY 07/06/2024 10:1 3 AM EST Physician Radiation Oncology RADIATION ONCOLO GY ORDERABLES Final Result MOSAIQ RADIATION ONCOLOGY * Rad Onc Msq Treatment Summary (07/05/2024 10:15 AM EST) Treatment Site left breast MOS AIQ RADIATION ONCOLOGY Course Number 1 MOSAIQ RADIATION ONCOLOGY Prescribed Fractional Dose 266 cGray MOSAIQ RADIATION ONCOLOGY Prescribed Total Dose 4,256 cGray MOSAIQ RADIATION ONCOLOGY Actual Fractions Delivered 3 MOSAIQ RADIATION ONCOLOGY Prescription Pattern Comment free breathing MOSAIQ RADIATION ONCOLOGY Actual Session Delivered Dose 267 cGray MOSAIQ RADIATION ONCOLOGY Actual Total Dose 801 cGray MOSAIQ RADIATION ONCOLOGY Prescribed Technique Tangents MOSAIQ RADIATION ONCOLOGY Elapsed Days 2 MOSAIQ RADIATION ONCOLOGY Start Date 07/03/2024 MOSAIQ RADIATION ONCOLOGY Last Date 07/05/2024 MOSAIQ RADIATION ONCOLOGY Prescribed Number of Fractions 16 MOSAIQ RADIATION ONCOLOGY 07/05/2024 10:1 5 AM EST Physician Radiation Oncology RADIATION ONCOLO GY ORDERABLES Final Result Performing Organization Address City/[facility]/ZIP Co de Phone Number MOSAIQ RADIATION ONCOLOGY * Rad Onc Msq Treatment Summary (07/04/2024 11:22 AM EST) Treatment Site left breast MOS AIQ RADIATION ONCOLOGY Course Number 1 MOSAIQ RADIATION ONCOLOGY Prescribed Fractional Dose 266 cGray MOSAIQ RADIATION ONCOLOGY Prescribed Total Dose 4,256 cGray MOSAIQ RADIATION ONCOLOGY Actual Fractions Delivered 2 MOSAIQ RADIATION ONCOLOGY Prescription Pattern Comment free breathing MOSAIQ RADIATION ONCOLOGY Actual Session Delivered Dose 267 cGray MOSAIQ RADIATION ONCOLOGY Actual Total Dose 534 cGray MOSAIQ RADIATION ONCOLOGY Prescribed Technique Tangents MOSAIQ RADIATION ONCOLOGY Elapsed Days 1 MOSAIQ RADIATION ONCOLOGY Start Date 07/03/2024 MOSAIQ RADIATION ONCOLOGY Last Date 07/04/2024 MOSAIQ RADIATION ONCOLOGY Prescribed Number of Fractions 16 MOSAIQ RADIATION ONCOLOGY 07/04/2024 11:2 2 AM EST Physician Radiation Oncology RADIATION ONCOLO GY ORDERABLES Final Result MOSAIQ RADIATION ONCOLOGY * Rad Onc Msq Treatment Summary (07/03/2024 11:52 AM EST) Treatment Site left breast MOS AIQ RADIATION ONCOLOGY Course Number 1 MOSAIQ RADIATION ONCOLOGY Prescribed Fractional Dose 266 cGray MOSAIQ RADIATION ONCOLOGY Prescribed Total Dose 4,256 cGray MOSAIQ RADIATION ONCOLOGY Actual Fractions Delivered 1 MOSAIQ RADIATION ONCOLOGY Prescription Pattern Comment free breathing MOSAIQ RADIATION ONCOLOGY Actual Session Delivered Dose 267 cGray MOSAIQ RADIATION ONCOLOGY Actual Total Dose 267 cGray MOSAIQ RADIATION ONCOLOGY Prescribed Technique Tangents MOSAIQ RADIATION ONCOLOGY Elapsed Days 0 MOSAIQ RADIATION ONCOLOGY Start Date 07/03/2024 MOSAIQ RADIATION ONCOLOGY Last Date 07/03/2024 MOSAIQ RADIATION ONCOLOGY Prescribed Number of Fractions 16 MOSAIQ RADIATION ONCOLOGY 07/03/2024 11:5 2 AM EST Physician Radiation Oncology MD RADIATION ONCOLO GY ORDERABLES Final Result MOSAIQ RADIATION ONCOLOGY * BD Bone Density DXA Axial Skeleton (06/13/2024 8:10 AM EST) Anatomical Region Laterality Modality Wrist, Hip, L-spine Bone Densito metry 06/13/2024 8:34 AM EST Impressions 06/13/2024 8:36 AM EST 1. Osteopenia. ??There has been an increase of 4.2% in bone mineral density in the lumbar spine since the prior examination of 07/15/2020. ??There has been an increase of 7.1% in bone mineral density in the right femur and a decrease of 3.9% in bone mineral density in the left femur. 2. FRAX analysis yields a 10-year probability of major osteoporotic fracture of 3.2% and a 10-year probability of hip fracture of 0.4%. Code 55155 -------- FINAL REPORT -------- Dictated By: Sukhwinder Salomon Dictated Date: 06/13/2024 08:34 ET Assigned Physician: Sukhwinder Salomon Reviewed and Electronically Signed By: Sukhwinder Salomon Signed Date: 06/13/2024 08:36 ET Workstation ID: [id number] Transcribed By: Self Edit Transcribed Date: 06/13/2024 08:34 ET Narrative 06/13/2024 8:36 AM EST HISTORY: ??The patient is a 63-year-old postmenopausal female smoker with clinical concern for metabolic bone disease. FINDINGS: ??Dual energy x-ray absorptiometry of the lumbar spine and femurs is performed. The mean bone mineral density at L1-2 is 1.409 gm/cm2 which is 121% of that of young normals and 119% of that of age matched controls. This yields a T- score of 2.0 and a Z-score of 1.9 and there is therefore no evidence of osteoporosis or osteopenia here. The mean bone mineral density of the femurs bilaterally is 1.042 gm/cm2 which is 103% of that of young normals and 97% of that of age matched controls. ??This yields a T-score of 0.3 and a Z-score of -0.2 and there is therefore no evidence of osteoporosis or osteopenia here. However, the T-score of the left femoral neck is -1.2 which is diagnostic of osteopenia. Procedure Note Sukhwinder Salomon MD - 06/13/2024 HISTORY: The patient is a 63-year-old postmenopausal female smoker withclinical concern for metabolic bone disease. FINDINGS: Dual energy x-ray absorptiometry of the lumbar spine and femursis performed. The mean bone mineral density at L1-2 is 1.409 gm/cm2 whichis 121% of that of young normals and 119% of that of age matched controls.This yields a T-score of 2.0 and a Z-score of 1.9 and there is thereforeno evidence of osteoporosis or osteopenia here. The mean bone mineral density of the femurs bilaterally is 1.042 gm/qb2lmqqo is 103% of that of young normals and 97% of that of age matchedcontrols. This yields a T-score of 0.3 and a Z-score of -0.2 and there istherefore no evidence of osteoporosis or osteopenia here. However, theT-score of the left femoral neck is -1.2 which is diagnostic ofosteopenia. IMPRESSION: 1. Osteopenia. There has been an increase of 4.2% in bone mineral densityin the lumbar spine since the prior examination of 07/15/2020. There hasbeen an increase of 7.1% in bone mineral density in the right femur and adecrease of 3.9% in bone mineral density in the left femur. 2. FRAX analysis yields a 10-year probability of major osteoporoticfracture of 3.2% and a 10-year probability of hip fracture of 0.4%. Code 08583 -------- FINAL REPORT -------- Dictated By: Sukhwinder Salomon Dictated Date: 06/13/2024 08:34 ET Assigned Physician: Sukhwinder Salomon Reviewed and Electronically Signed By: Sukhwinder Salomon Signed Date: 06/13/2024 08:36 ET Workstation ID: [id number] Transcribed By: Self Edit Transcribed Date: 06/13/2024 08:34 ET us Samara Trujillo MD IMG DXA PROCEDURES Final Res ult * [facility] SCREENING DIGITAL (03/01/2024 2:56 PM EDT) Anatomical Region Laterality Modality Mammography 03/01/2024 9:50 AM EDT Narrative 03/01/2024 2:56 PM EDT [facility] Diagnostic Imaging Department [address] [place] [id number] Patient: ??GUEVARA NAYLOR ?/Age/Sex: 1960 - 63 - F Unit#: ??[id number] ? Location/Status: ??SPDIMAM/REG CLI ? Mnemonic/Ordering Site: ??DIGSC/SPMAM Ordering Physician: ??GEETA LUTZ MD [facility] Screening Digital - 03/01/24 - [id number] Report Status:Signed EXAM: [facility] Screening Digital EXAM DATE AND TIME: 03/01/2024 10:16 AM HISTORY: ??Screening. COMPARISON: ??09/29/22, 09/21/21, 07/15/20, 12/04/18 TECHNIQUE: Bilateral digital breast tomosynthesis was performed in the CC and MLO projections. Computer aided detection with Syncurity 3D 3.1 was employed. TISSUE DENSITY: b. There are scattered areas of fibroglandular density. FINDINGS: A 13 mm asymmetry with possible architectural distortion is seen in the medial left breast, middle depth, CC view is only. CC spot compression tomosynthesis views and full lateral tomosynthesis views are recommended for further assessment. Scattered microcalcifications are without significant change. The skin and vascularity are unremarkable. IMPRESSION: 1. Left breast asymmetry, with possible architectural distortion, for which additional views are recommended. The patient will be called back. 2. Stable mammographic appearance of the right breast. No evidence of malignancy is seen. BI-RADS: ??Category 0: Incomplete - Need Additional Imaging Evaluation RECOMMENDATION(S): 1: Special mammographic view(s) needed LEFT Mammogram performed at [facility] [place] [address] Dictating Physician: ??ANNETTA KANG MD Electronically Signed by: ??ANNETTA KANG MD Dic Date/Time: ??03/01/24 1453 Sign date/Time: ??03/01/24 1456 Procedure Note Annetta Kang MD - 04/11/2024 [facility] Diagnostic Imaging Department [address] [place] [id number] Patient: GUEVARA NAYLOR /Age/Sex: 1960 - 63 - F Unit#: [id number] Location/Status: SPDIMAM/REG CLI Mnemonic/Ordering Site: [facility] Ordering Physician: GEETA LUTZ MD [facility] Screening Digital - 03/01/24 - 1016 Report Status:Signed EXAM: [facility] Screening Digital EXAM DATE AND TIME: 03/01/2024 10:16 AM HISTORY: Screening. COMPARISON: 09/29/22, 09/21/21, 07/15/20, 12/04/18 TECHNIQUE: Bilateral digital breast tomosynthesis was performed in the CCand MLO projections. Computer aided detection with Syncurity 3D 3.1was employed. TISSUE DENSITY: b. There are scattered areas of fibroglandular density. FINDINGS: A 13 mm asymmetry with possible architectural distortion is seen in themedial left breast, middle depth, CC view is only. CC spot compressiontomosynthesis views and full lateral tomosynthesis views are recommended for further assessment. Scattered microcalcifications are without significant change. The skinand vascularity are unremarkable. IMPRESSION: 1. Left breast asymmetry, with possible architectural distortion, forwhich additional views are recommended. The patient will be called back. 2. Stable mammographic appearance of the right breast. No evidence of malignancy is seen. BI-RADS: Category 0: Incomplete - Need Additional Imaging Evaluation RECOMMENDATION(S): 1: Special mammographic view(s) needed LEFT Mammogram performed at [place] [address] Dictating Physician: ANNETTA KANG MD Electronically Signed by: ANNETTA KANG MD Dic Date/Time: 03/01/24 1453 Sign date/Time: 03/01/24 1456 Geeta Lutz MD IMG BI PROCEDURES Final Result from Last 3 Months or Most Recently Relevant to Health Maintenance Insurance [employer] MEDICARE Member Subscriber Plan / Payer (Ef fective 2023-Present) Name:Cyndy Guevara Relation to Subscriber:Self Name:CyndyGuevara reich Payer ID:[id number] Group ID:[id number] Type:Not on file Address: [place] [address] [address] [address] Care Teams High School Biology Teacher Relationship Specialty Start Date End Date Geeta Lutz MD [address] [phone] PCP - General Internal Medicine 05/22/18
--- OUTSIDE RECORDS SUMMARY | 2024-08-29 10:18 | XMS_ITS ---
Author Organization [facility] Address [address] [place] [address] Phone Care Team Providers Care Box Blank Machine Operator Name Role Phone Kristin Lutz MD Primary Care Provider [phone] Active Problems Problem Noted Date Diagnosed Date Malignant neoplasm of upper- inner quadrant of left breast in female, estrogen receptor positive 05/28/2024 Cancer Staging:Pathologic stage from 05/03/2024:Stage IA(pT1c, pN1mi(sn), cM0, G2, ER+, MN+, HER2-, Oncotype DX score: 16) - Signed [...] Dr. Harris who is recently moved from [facility] to [facility]. We will try to arrange for her [...] Dr. Harris who is recently moved from [facility]. We will try to arrange for her to get follow-up with Dr. Harris. History of myocardial infarct at age greater blanka n 58 years 01/22/2021 Osteopenia determined by x-ray 08/06/2020 HLD (hyperlipidemia) 12/16/2017 Type 2 diabetes mellitus without complication Benign essential hypertension 08/10/2017 Sciatica 09/12/2013 Glaucoma 09/12/2013 Severe obesity 03/19/2013 Current Oncology Plans No current plan information found. Past Plans No past plan information found. Radiation Treatments * Treatment Site Started On Last Treated On Elapsed Days Fractions Complete Last Fraction Dose Given/Prescribed Total Dose Given/Prescribed Technique left breast boost 5 07/30/2024 5 4 of 4 250 cGy / 250 cGy 1,000 cGy / 1,000 cGy NORTH/LPO left breast 07/03/2024 5 21 16 of 16 267 cGy / 266 cGy 4,272 cGy / 4, 256 cGy Tangents
--- OUTSIDE RECORDS SUMMARY | 2024-08-29 10:19 | XMS_ITS | Patient Health Record ---
Author Organization [facility] Address [address] [place], [place] [id number] Care Team Providers Care Resource Recovery Engineer Name Role Phone Dr Ivelisse Lutz Primary Care Provider Melissa Douglass Unavailable [phone] Reason For Referral No Information Social History Sex Assigned At : Social History Observation Description Sex Assigned At Female Encounters Encounter Location Date Provider Diagnosis [facility] [address] [place] [id number] 09/12/2023 Melissa Curtis [facility] [address] [place] [phone] 09/20/2023 Melissa Curtis [facility] [phone] 08/24/2024 Melissa Curtis Plan Of Treatment Next Appt Details Provider Name:Melissa Mensah, 08/31/2024 01:15:00 PM, [facility], [address] [place] [address], [phone], Insurance Providers Payer Name Payer Address Payer Phone Subscriber Number Group Number Insured Name Patient Relationship to Insured Coverage Start Date Coverage End Date [employer] O [address] [place] [phone] [id number] Shiloh Naylor Self - patient is the insured 4 4
--- OUTSIDE RECORDS SUMMARY | 2024-08-29 10:19 | XMS_ITS | Encounter Summary ---
Author Organization [facility] Address [address] [place] [address] Care Team Providers Care Home Energy Inspector Name Role Phone Kristin Lutz MD Primary Care Provider [phone] Reason for Visit * Reason Onset Date Comments Nelda: Lab work 07/23/2024 Encounter Details Date Type Department Care Team (Late st Contact Info) Description 07/23/2024 Telephone Internal Medicine - [place] [address] [facility] [address] [place] [phone] Kristin Lutz MD 175 [facility] [address] [place] [phone] Nelda: Lab work Social History Tobacco Use Types Packs/Day Years [...] as of this encounter Progress Notes * David Koroma MA - 07/26/2024 8:11 AM EST Called pt informed labs were ordered. * Kristin Lutz MD - 07/25/2024 10:24 PM EST Labs ordered * David Koroma MA - 07/23/2024 2:[address] labs orders requested. * Yani Cook - 07/23/2024 2:29 PM EST Patient called and requested lab work for her A1C and a full cardiac panel. Please advise Cb# [phone] documented in this encounter Plan of Treatment Upcoming Encounters Date Type Department Care Team (Late st Contact Info) Description 09/04/2024 11:00 AM EDT Office Visit Breast Care Center [facility] [address] [phone] Dio Ram MD 271 [facility] [address] [place] [address] 02/19/2025 9:30 AM EDT Office Visit Internal Medicine [facility] [address] [facility] [address] [place] [phone] Kristin Lutz MD [address] [phone] 03/04/2025 1:00 PM EDT Office Visit [facility] Hematology Oncology [address] [place] [phone] Samara Trujillo MD [address] [place] [address] documented as of this encounter Results * (ABNORMAL) Comprehensive metabolic panel (07/27/2024 9:30 AM EST) Sodium 138 133 - 145 mmol/L LAB CHEMISTRY METHOD 07/27/2024 11:44 AM [facility] Potassium 4.0 3.5 - 5.5 mmol/L LAB CHEMISTRY METHOD 07/27/2024 11:44 AM [facility] Chloride 108 96 - 110 mmol/L LAB CHEMISTRY METHOD 07/27/2024 11:44 AM [facility] CO2 23 21 - 32 mmol/L LAB CHEMISTRY METHOD 07/27/2024 11:44 AM [facility] Anion Gap 7 3 - 11 LAB CHEMISTRY METHOD 07/27/2024 11:44 AM [facility] Glucose 173(H) 70 - 100 mg/dL LAB CHEMISTRY METHOD 07/27/2024 11:44 AM [facility] BUN 20 5 - 25 mg/dL LAB CHEMISTRY METHOD 07/27/2024 11:44 AM [facility] Creatinine 1.01 0.50 - 1.10 mg/dL LAB CHEMISTRY METHOD 07/27/2024 11:44 AM [facility] eGFR 62 >=60 mL/min/1. 73m2 LAB CHEMISTRY METHOD 07/27/2024 11:44 AM [facility] Comment:Calculation based on the??Chronic Kidney Disease Epidemiology Collaboration (CKD-EPI) equation refit??without adjustment for race. BUN/Creatinine Ratio 19.8 LAB CHEMISTRY METHOD 07/27/2024 11:44 AM [facility] Calcium 9.6 8.5 - 10.5 mg/dL LAB CHEMISTRY METHOD 07/27/2024 11:44 AM [facility] AST (SGOT) 18 10 - 42 unit/L LAB CHEMISTRY METHOD 07/27/2024 11:44 AM [facility] ALT (SGPT) 34 10 - 60 unit/L LAB CHEMISTRY METHOD 07/27/2024 11:44 AM [facility] Alkaline Phosphatase 68 42 - 121 unit/L LAB CHEMISTRY METHOD 07/27/2024 11:44 AM [facility] Total Protein 7.0 6.0 - 8.0 g/dL LAB CHEMISTRY METHOD 07/27/2024 11:44 AM [facility] Albumin 3.9 3.2 - 5.0 g/dL LAB CHEMISTRY METHOD 07/27/2024 11:44 AM [facility] Total Bilirubin 0.4 0.0 - 1.4 mg/dL LAB CHEMISTRY METHOD 07/27/2024 11:44 AM [facility] Blood Venous blood specimen / Unknown Venipuncture / Unknown 07/27/2024 9:30 AM EST 07/27/2024 11:16 AM EST us Kristin Lutz MD LAB BLOOD ORDERABLES Final Res ult [facility] [address] [place] [address], * Lipid panel with reflex to direct LDL (07/27/2024 9:30 AM EST) Cholesterol 139 0 - 200 mg/dL LAB CHEMISTRY METHOD 07/27/2024 11:44 AM [facility] Triglycerides 130 0 - 150 mg/dL LAB CHEMISTRY METHOD 07/27/2024 11:44 AM [facility] HDL 43 >=40 mg/dL LAB CHEMISTRY METHOD 07/27/2024 11:44 AM [facility] LDL Calculated 70 0 - 100 mg/dL LAB CHEMISTRY METHOD 07/27/2024 11:44 AM [facility] VLDL Cholesterol Olegario 26 mg/dL LAB CHEMISTRY METHOD 07/27/2024 11:44 AM [facility] Non HDL Chol. (LDL+VLDL) 96 <145 mg/dL LAB CHEMISTRY METHOD 07/27/2024 11:44 AM EST [facility] Chol/HDL Ratio 3.2 0.0 - 4.4 LAB CHEMISTRY METHOD 07/27/2024 11:44 AM EST [facility] Blood Venous blood specimen / Unknown Venipuncture / Unknown 07/27/2024 9:30 AM EST 07/27/2024 11:16 AM EST us Kristin Lutz MD LAB BLOOD ORDERABLES Final Res ult [facility] [address] [place] [address], [place] [phone] * (ABNORMAL) Hemoglobin A1c (07/27/2024 9:30 AM EST) Hemoglobin A1C 6.7(H) <6.5 % LAB CHEMISTRY METHOD 07/27/2024 9:14 PM EST [facility] Mean Bld Glu Estim. 146 mg/dL LAB CHEMISTRY METHOD 07/27/2024 9:14 PM EST [facility] Blood Venous blood specimen / Unknown Venipuncture / Unknown 07/27/2024 9:30 AM EST 07/27/2024 11:17 AM EST us Kristin Lutz MD LAB BLOOD ORDERABLES Final Res ult Performing Organization Address City/[facility]/ZIP Co de Phone Number [facility] [address] [place] [address], [place] [phone] documented in this encounter Visit Diagnoses Diagnosis Type 2 diabetes mellitus without complication, without long-term current use of insulin ([facility])- Primary Primary hypertension Unspecified essential hypertension documented in this encounter Additional Health Concerns Assessment Noted Time A fall risk assessment has been complete d for the patient 06/11/2024 9:42 AM EST documented as of this encounter Care Teams Home Energy Inspector Relationship Specialty Start Date End Date Kristin Lutz MD [address] [phone] PCP - General Internal Medicine 05/22/18 documented as of this encounter
--- OUTSIDE RECORDS SUMMARY | 2024-08-29 10:19 | XMS_ITS | Clinical Summary ---
Author Organization [facility] Address [address] [place] [address] Care Team Providers Care Supervisor Water Treatment Plant Name Role Phone Kristin Lutz MD Primary Care Provider [phone] Social History Tobacco Use Types Packs/Day Years Used Date Smoking Tobacco: Never Assessed Sex and Gender Information Value Date Recorded Sex Assigned at Not on file Gender Identity Not on file Sexual Orientation Not on file Job Start Date Occupation Industry Not on file Not on file Not on file Plan of Treatment Health Maintenance Due Date Last Done Comments Hepatitis C Screening 1960 COVID-19 Vaccine (#1) 01/04/1959 Depression Screening 1970 Preventative Health Evaluation 1976 Colon Cancer Screening (Colonoscopy) 2003 Breast Cancer Screening (Mammogram) 2008 Shingrix-Zoster Vaccine (1 of 2) 2008 DTap / Tdap / Td (2 - Td or Tdap) 09/05/2018 009 Fall Risk Assessment 2023 Osteoporosis Screening (DEXA Scan) 2023 Pneumococcal Vaccine (2 of 2 - PPSV23 or PCV20) 2023 04/29/2016 Influenza Vaccine (#1) 2024 06/29/2013 RSV Adult > 60+ Yrs or Pregn ant (1 - 1-dose 75+ series) 2033 Hepatitis B Vaccines Aged Out No long er eligible based on patient's age to complete this topic RSV Ped < 20 months Aged Out No longe r eligible based on patient's age to complete this topic Care Teams Supervisor Water Treatment Plant Relationship Specialty Start Date End Date Kristin Lutz MD [address] [phone] PCP - General Internal Medicine 07/04/17
--- OUTSIDE RECORDS SUMMARY | 2024-08-29 10:19 | XMS_ITS | Encounter Summary ---
Author Organization [employer] [facility] Address [address] [facility] [address] [place] [address] Care Team Providers Care Internal Recruiter Name Role Phone Unavailable Primary Care Provider Unavailabl e Reason for Visit * Reason Comments Dental Pain Encounter Details Date Type Department Care Team (Latest Contact Info) Description 08/24/2024 1:00 PM EST Office Visit [facility] AD[facility] D[facility]AL [address] [place] [address] Elsa Bo DDS [address] [place], [place] [phone] Symptomatic periapical periodontitis (Primary Dx); Dental abscess Social History Tobacco Use Types Packs/Day Years Used Date Smoking Tobacco: Every Day Cigarettes Smokeless Tobacco: Never Alcohol Use Standard Drinks/Week Comments Yes 0 (1 standard drink = 0.6 oz pur e alcohol) social Comments Unknown Sex and Gender Information Value Date Recorded Sex Assigned at Female 04/26/2022 10:31 AM EDT Legal Sex Female 10:31 AM EDT Gender Identity Female 07/13/2024 11:07 AM EST Sexual Orientation Choose not to disclose 2024 11:07 AM EST documented as of this encounter Last Filed Vital Signs Vital Sign Reading Time Taken Comments Blood Pressure 120/80 08/24/2024 1:05 PM EST Pulse - - Temperature - - Respiratory Rate - - Oxygen Saturation - - Inhaled Oxygen Concentration - - Weight - - Height - - Body Mass Index - - documented in this encounter Progress Notes * Elsa Bo DDS - 08/24/2024 1:00 PM EST Dental procedures in this visit [id number] - PALLIATIVE (EMERGENCY) TREATMENT OF DENTAL PAIN - MINOR PROCEDURE (Completed) Service provider: Elsa Bo DDS Billing provider: Elsa Bo DDS [id number] - INTRAORAL - PERIAPICAL FIRST RADIOGRAPHIC IMAGE (Completed) Service provider: Elsa Bo DDS Billing provider: Elsa Bo DDS [id number] - CASE PRESENTATION, DETAILED AND EXTENSIVE TREATMENT PLANNING (Completed) Service provider: Elsa Bo DDS Billing provider: Elsa Bo DDS Patient ID: Shiloh Naylor is a 64 y.o. female. Time Out: Timeout Date: 08/24/24, Timeout Time: 1305 Location: [facility] Tooth: #8 Procedure: Emergency Verified the above with patient, financial legal assistant, and provider. Confirmed via patient's chart, intraorally and by radiographs. Film Historian: not applicable Chief Complaint Patient presents with Dental Pain Medical Hx: Vitals: Blood pressure 120/80. Past Medical History: Diagnosis Date Arthritis Cancer ([facility]) Diabetes mellitus ([facility]) Glaucoma Heart disease Heart trouble History of heart attack 2021 History of radiation therapy current (breast cancer) Hypertension Medications: Outpatient Encounter Medications as of 08/24/2024 Medication Sig Dispense Refill acetaminophen (Tylenol 8 Hour) 650 MG ER tablet Take 1 tablet (650 mg) by mouth every 8 (eight) hours if needed for moderate pain for up to 10 days. Do not crush, chew, or split. 15 tablet 0 acetaminophen (Tylenol) 500 MG tablet Take by mouth every 6 (six) hours if needed. albuterol 108 (90 Base) MCG/ACT inhaler INHALE 2 PUFFS INHALATION EVERY 6 HOURS NEEDED FOR WHEEZING/SHORTNESS OF BREATH amoxicillin (Amoxil) 500 MG capsule Take 1 capsule (500 mg) by mouth every 8 (eight) hours for 7 days. 21 capsule 0 aspirin 81 MG EC tablet atorvastatin (Lipitor) 80 MG tablet TAKE 1 TABLET BY MOUTH EVERY DAY FOR 90 DAYS Blood Glucose Monitoring Suppl (GlucPR Slidesm Blood Glucose Monitor) device 1 Device. Calcium Carb-Cholecalciferol 600-5 MG-MCG tablet Take 1 tablet by mouth 2 times daily. empagliflozin (Jardiance) 10 MG Take by mouth. Entresto 24-26 MG tablet Take 1 tablet by mouth 2 times daily. ibuprofen 400 MG tablet TAKE 1 TABLET BY MOUTH EVERY 6 HOURS NEEDED FOR MODERATE PAIN FOR UP TO 10 DAYS metFORMIN (Glucophage) 500 MG tablet Take 500 mg by mouth with breakfast and with evening meal. metoprolol succinate XL (Toprol-XL) 50 MG 24 hr tablet TAKE 1 TABLET BY MOUTH EVERY DAY FOR 90 DAYS Precision QID Test test strip 1 each. tobramycin-dexAMETHasone (Tobradex) ophthalmic suspension PLACE 1 DROP INTO BOTH EYES EVERY 4 HOURS(WHILE AWAKE). No facility-administered encounter medications on file as of 08/24/2024. Subjective: Pain: moderate Duration: 1 months Objective: Tooth: #8 and #9 Radiographs Taken: PA(s) Radiographic Findings: large PARL #8, DL RDL corresponding to cavity Clinical Findings: inflammation of L mucosa due to infection- returned. Swelling: Tenderness and Intraoral swelling Diagnosis: Abscessed tooth; Acute periapical periodontitis Assessment/Plan: Referred for ext- waiting on clearance from acetylene plant operator Prescriptions: Amoxicillin 500 mg/tid/7 days 21 caps Tylenol 650 mg/tid/prn 15 tabs Pt tolerated procedure well, all questions answered. Dismissed in good condition. NV: Ext Machine Inspector: RIKY Lauren Dentist: Elsa Bo DDS documented in this encounter Plan of Treatment Not on file documented as of this encounter Procedures Procedure Name Priority Date/Time Associated Diagnosis Comments PALLIATIVE (EMERGENCY) TREATMENT OF DENTAL PAIN - MINOR PROCEDURE Routine 08/24/2024 1:00 PM EST Symptomatic periapical periodontitis Dental abscess INTRAORAL - PERIAPICAL FIRST RADIOGRAPHIC IMAGE Routine 08/24/2024 1:00 PM EST Symptomatic periapical periodontitis Dental abscess CASE PRESENTATION, DETAILED AND EXTENSIVE TREATMENT PLANNING Routine 08/24/2024 1:00 PM EST Symptomatic periapical periodontitis Dental abscess documented in this encounter Visit Diagnoses Diagnosis Symptomatic periapical periodontitis- Primary Dental abscess Periapical abscess without sinus documented in this encounter
--- OUTSIDE RECORDS SUMMARY | 2024-08-29 10:19 | XMS_ITS | Clinical Summary ---
Author Organization [employer] Address [address] [facility] [address] [place] [address] Care Team Providers Care Client Delivery Specialist Name Role Phone Unavailable Primary Care Provider Unavailabl e Allergies No known active allergies Medications albuterol 108 (90 Base) MCG/ACT inhaler INHALE 2 PUFFS INHALATION EVERY 6 HOURS NEEDED FOR WHEEZING/SHORTN ESS OF BREATH 4 Active acetaminophen (Tylenol) 500 MG tablet Take by mouth every 6 (six) hours if needed. Active aspirin 81 MG EC tablet 1 Active atorvastatin (Lipitor) 80 MG tablet TAKE 1 TABLET BY MOUTH EVERY DAY FOR 90 DAYS 1 Active Blood Glucose Monitoring Suppl (GlucoCom Blood Glucose Monitor) device 1 Device. 3 Active Calcium Carb-Cholecalci ferol 600-5 MG-MCG tablet Take 1 tablet by mouth 2 times daily. 5 Active ibuprofen 400 MG tablet TAKE 1 TABLET BY MOUTH EVERY 6 HOURS NEEDED FOR MODERATE PAIN FOR UP TO 10 DAYS 4 Active Precision QID Test test strip 1 each. 3 Active metFORMIN (Glucophage) 500 MG tablet Take 500 mg by mouth with breakfast and with evening meal. 8 Active metoprolol succinate XL (Toprol-XL) 50 MG 24 hr tablet TAKE 1 TABLET BY MOUTH EVERY DAY FOR 90 DAYS 1 Active Entresto 24-26 MG tablet Take 1 tablet by mouth 2 times daily. 1 Active tobramycin-dexA METHasone (Tobradex) ophthalmic suspension PLACE 1 DROP INTO BOTH EYES EVERY 4 HOURS (WHILE AWAKE). 4 Active empagliflozin (Jardiance) 10 MG Take by mouth. Activ e amoxicillin (Amoxil) 500 MG capsule Take 1 capsule (500 mg) by mouth every 8 (eight) hours for 7 days. 21 capsule 5 09/01/19 25 Active acetaminophen (Tylenol 8 Hour) 650 MG ER tablet Take 1 tablet (650 mg) by mouth every 8 (eight) hours if needed for moderate pain for up to 10 days. Do not crush, chew, or split. 15 tablet 5 09/04/19 25 Active Active Problems Problem Noted Date Diagnosed Date Malignant neoplasm of upper- inner quadrant of left breast in female, estrogen receptor positive 05/28/2024 Diabetes mellitus 05/20/2024 Hypertension 05/20/2024 Cervical radiculopathy at C7 07/09/2022 Overview (07/13/2024): Last Assessment & Plan: Ms. Naylor describes worsening pain in the neck with radiation in the right arm in a C7 or C8 distribution. She would like to go to physical therapy and I think this is reasonable. We have set up a prescription with cervical traction. Lumbar spondylosis 07/14/2021 Overview (07/13/2024): Last Assessment & Plan: Ms. Naylor describes a return of her low back pain and radiation to the bilateral buttocks and posterior lateral thighs. This isher typical pain and she usually gets relief from L5-S1 epidural steroid injections. Her strong preference is to follow-up with Dr. Harris who is recently moved from [facility] to [facility]. We will try to arrange for her to get follow-up with Dr. Harris. History of myocardial infarct at age greater blanka n 58 years 01/22/2021 Osteopenia determined by x-ray 08/06/2020 HLD (hyperlipidemia) 12/16/2017 Type 2 diabetes mellitus without complication Benign essential hypertension 08/10/2017 Glaucoma 09/12/2013 Sciatica 09/12/2013 Severe obesity 03/19/2013 Encounters Date Type Department Care Team Description 08/24/2024 1:00 PM EST Office Visit [facility] [address] [place] [address] Elsa Bo, DDS Symptomatic periapical periodontitis (Primary Dx); Dental abscess 07/20/2024 Telephone [facility] [address] [place] [address] Elsa Bo DDS 07/13/2024 1:30 PM EST Office Visit [facility] [address] [place] [address] OquendoDre ElsaJUAN Dental caries (Primary Dx); Symptomatic periapical periodontitis; Dental root caries from Last 3 Months Social History Tobacco Use Types Packs/Day Years Used Date Smoking Tobacco: Every Day Cigarettes Smokeless Tobacco: Never Tobacco Cessation:Ready to Q uit: Not Asked; Counseling Given: Not Answered Alcohol Use Standard Drinks/Week Comments Yes 0 (1 standard drink = 0.6 oz pur e alcohol) social Comments Unknown Sex and Gender Information Value Date Recorded Sex Assigned at Female 04/26/2022 10:31 AM EDT Legal Sex Female 10:31 AM EDT Gender Identity Female 07/13/2024 11:07 AM EST Sexual Orientation Choose not to disclose 2024 11:07 AM EST Last Filed Vital Signs Vital Sign Reading Time Taken Comments Blood Pressure 120/80 08/24/2024 1:05 PM EST Pulse - - Temperature - - Respiratory Rate - - Oxygen Saturation - - Inhaled Oxygen Concentration - - Weight - - Height - - Body Mass Index - - Plan of Treatment Health Maintenance Due Date Last Done Comments CT Colonography 1958 Colonoscopy 1958 Colorectal Cancer Screening 1958 Depression Screening 1958 Diabetes: Hemoglobin A1C 1958 FIT DNA/Cologuard 1958 FIT 1958 FOBT 1958 Lipid Panel 1958 SDOH Screening 1958 Sigmoidoscopy 1958 Diabetes: Foot Exam 1968 Eye Exam 1968 Alcohol/Substance Use Screening 1970 Hepatitis C Screening 1976 Diabetes: Urine Protein Screening 1977 Dental Oral Exam 07/23/2017 01/19/2017 Dental Prophylaxis 07/23/2017 01/19/2017 Dental X-Ray: Bitewings 01/20/2018 01/19/2017 DTaP/Tdap/Td Vaccines (2 - Td or Tdap) 09/05/2018 09/05/2008 Dental X-Ray: Full Mouth 01/21/2020 01/19/2017 COVID-19 Vaccine ( season) 2024 03/26/2023, 07/15/2022, 10/22/2021, Additional history exists Influenza Vaccine (#1) 2024 , 04/28/2022, 07/13/2021, Additional history exists Tobacco Screening 08/24/2025 08/24/2024 RSV Patients and Patients Aged 60 years or older (1 - 1-dose 75+ series) 2033 Zoster Vaccines Completed 10/22/2021, 07/13/2021 Pneumococcal Vaccine: 50+ Years Completed 01/03/2024, 04/29/2016 [...] patient's age to complete this topic Meningococcal Vaccine Aged Out No hedy gloria eligible based on patient's age to complete this topic RSV under 20 months Aged Out No longe r eligible based on patient's age to complete this topic Rotavirus Vaccines Aged Out No longer eligible based on patient's age to complete this topic Procedures Procedure Name Priority Date/Time Associated Diagnosis Comments CASE PRESENTATION, DETAILED AND EXTENSIVE TREATMENT PLANNING Routine 08/24/2024 1:00 PM EST Symptomatic periapical periodontitis Dental abscess INTRAORAL - PERIAPICAL FIRST RADIOGRAPHIC IMAGE Routine 08/24/2024 1:00 PM EST Symptomatic periapical periodontitis Dental abscess PALLIATIVE (EMERGENCY) TREATMENT OF DENTAL PAIN - MINOR PROCEDURE Routine 08/24/2024 1:00 PM EST Symptomatic periapical periodontitis Dental abscess CASE PRESENTATION, DETAILED AND EXTENSIVE TREATMENT PLANNING Routine 07/13/2024 1:30 PM EST Dental caries Symptomatic periapical periodontitis INTRAORAL - PERIAPICAL FIRST RADIOGRAPHIC IMAGE Routine 07/13/2024 1:30 PM EST Dental caries Symptomatic periapical periodontitis PALLIATIVE (EMERGENCY) TREATMENT OF DENTAL PAIN - MINOR PROCEDURE Routine 07/13/2024 1:30 PM EST Dental caries Symptomatic periapical periodontitis PROPHYLAXIS - ADULT Routine 01/19/2017 1 2:00 AM EDT INTRAORAL - COMPLETE SERIES OF RADIOGRAPHIC IMAGES Routine 01/19/2017 12:00 AM EDT COMPREHENSIVE ORAL EVALUATION - NEW OR ESTABLISHED PATIENT Routine 01/19/2017 12:00 AM EDT from Last 3 Months or Most Recently Relevant to Health Maintenance Insurance DENTAL - [facility]
--- OUTSIDE RECORDS SUMMARY | 2024-08-29 10:19 | XMS_ITS ---
Author Organization [facility] Address [address], [place] [id number] Care Team Providers Care Social Work Msw Name Role Phone Dr Ivelisse Lutz Primary Care Provider UnavailMelissa Aggarwal Unavailable Social History Sex Assigned At : Social History Observation Description Sex Assigned At Female Encounters Encounter Location Date Provider Diagnosis [facility] [address] [place] [phone] 09/12/2023 Melissa Curtis Plan Of Treatment Next Appt Details Provider Name:Melissa Mensah, 08/31/2024 01:15:00 PM, [facility] Supplier Quality Engineer, [address] [place] [address], [phone], Progress Notes * Shiloh NAYLORDOB:[birth year] (63 yo F)Acc No.[id number]:09/12/2023 Case Management Patient:?Shiloh Naylor Provider:?Melissa Curtis :1960???Age:63 Y???Sex:Female D ate:09/12/2023 Address:[address] [place], [place] [phone] Pcp:Dr Ivelisse Lutz Subjective: * Chief Complaints: * ??? * HPI: ???Social Service:?Referral Source?returning client.?Interpretation for medical provider?housing, referral out.? Client came in seeking assistance with housing search reports having issues with their Luis.The one thing on their Luis was in 1988 client was assisted in filling out paperwork for Luis to be sealed.Client set up an appointment to continue with housing search. * Medical History:? Objective: Assessment: Plan: * Treatment: * Images: Billing Information: * Visit Code:? * Procedure Codes:? Care Plan Details* * Sign off status: Completed true * Provider:?Melissa Curtis Date:? Generated for Diane gama/You/eTleslysmitting on:?08/29/2024 10:19 AM EST History and Physical Notes * HPI (History of Present Illness) Category Sub-Category Detail Notes Social Service Referral Source returning client Interpretation for medical provider hous ing, referral out
--- OUTSIDE RECORDS SUMMARY | 2024-08-29 10:19 | XMS_ITS ---
Author Organization [facility] Address [address] [place], [place] [id number] Care Team Providers Care Cokeman Name Role Phone Dr Ivelisse Lutz Primary Care Provider Melissa Douglass REASON FOR VISIT housing/court items Social History Sex Assigned At : Social History Observation Description Sex Assigned At Female Encounters Encounter Location Date Provider Diagnosis [facility] [address] [place] [phone] 08/24/2024 Melissa Curtis Plan Of Treatment Next Appt Details Provider Name:Melissa Mensah, 08/31/2024 01:15:00 PM, [facility] Manager Corporate Strategy, [address] [place] [address], [phone], Progress Notes * Shiloh NAYLOR AnnDOB:[birth year] (64 yo F)Acc No.[id number]:08/24/2024 Case Management New Patient:?Shiloh NAYLOR n Provider:?Melissa Curtis :1960???Age:64 Y???Sex:Female D ate:08/24/2024 Address:[address] [place] [phone] Pcp:Dr Ivelisse uLtz Subjective: * Chief Complaints: * ???1. Housing/court items. * HPI: ???Social Service:?Date of encounter?Date:,08/24/2024.?Referral Source?walk-in, self, returning client.?Interpretation for medical provider?housing.?Action Taken?Housing?Application [employer]: [employer] application/completed/ printed/ copies to Pt file and Pt as well.?Follow-up Required:?yes.?Pt comprehension?Pt agrees with plan.?Action taken (old)?form completion, Items given to client.? New appt provided to return and requested to provide? the documents to make calls to [facility] on nxt appt. Objective: * Vitals:? Assessment: Plan: * Treatment: * Images: Billing Information: * Visit Code:? * Procedure Codes:? Care Plan Details* * Sign off status: Completed true * Provider:?Melissa Curtis Date:? Generated for Diane gama/You/Shereen on:?08/29/2024 10:18 AM EST History and Physical Notes * HPI (History of Present Illness) Category Sub-Category Detail Notes Social Service Referral Source walk-in, self, r eturning client Interpretation for medical provider housing Action taken (old) form completion, Ite ms given to client Follow-up Required: yes Pt comprehension Pt agrees with plan Action Taken Housing: Application [employer]: [employer] application/completed/ printed/ copies to Pt file and Pt as well Date of encounter Date:,08/24/2024
--- OUTSIDE RECORDS SUMMARY | 2024-08-29 10:19 | XMS_ITS ---
Author Organization [facility] Address [address] [place], [place] [phone] Care Team Providers Care Lining Repairer Name Role Phone Dr Ivelisse Lutz Primary Care Provider Melissa Douglass Unavailable Social History Sex Assigned At : Social History Observation Description Sex Assigned At Female Encounters Encounter Location Date Provider Diagnosis [facility] [address] [place] [phone] 09/20/2023 Melissa Curtis Plan Of Treatment Next Appt Details Provider Name:Meilssa Mensah, 08/31/2024 01:15:00 PM, [facility] Window Installation Subcontractor, [address] [place] [address], [phone], Progress Notes * Shiloh NAYLORDOB:[birth year] (63 yo F)Acc No.[id number]:09/20/2023 Case Management Patient:?Shiloh Naylor Provider:?Melissa Curtis :1960???Age:63 Y???Sex:Female D ate:09/20/2023 Address:[address] [place], [place] [phone] Pcp:Dr Ivelisse Lutz Subjective: * Chief Complaints: * ??? * HPI: ???Social Service:?Referral Source?returning client.?Interpretation for medical provider?housing.? Client was interested in housing at this time client was assisted in filling out applications client was given housing applications for [facility],. * Medical History:? Objective: Assessment: Plan: * Treatment: * Images: Billing Information: * Visit Code:? * Procedure Codes:? Care Plan Details* * Sign off status: Completed true * Provider:Anjel Curtis Date:? Generated for Diane gama/You/Shereen on:?08/29/2024 10:18 AM EST History and Physical Notes * HPI (History of Present Illness) Category Sub-Category Detail Notes Social Service Referral Source returning client Interpretation for medical provider hous ing
--- OUTSIDE RECORDS SUMMARY | 2024-08-29 10:19 | XMS_ITS | Data Portability ---
Author Organization [facility] [employer] [facility] Address [address] [place] [phone] Care Team Providers Care Side Door Worker Name Role Phone [facility] Referring Provider [phone] Assessment No assessment recorded. Plan of Treatment Reminders Order Date Submit Date Provider Last Modified By Organization Details Last Modified Time Details Appointments None recorded. Lab rapid SARS CoV 2 Ag, QL IA, respiratory specimen 2021 022 [id number] [facility], [address] [place] [address], [phone], 22:48:22 Referral None recorded. Procedures None recorded. Surgeries None recorded. Imaging None recorded. Medication Orders None recorded. Patient TargetsNo targets recorded. Patient InstructionsNo instructions recorded. Reason for Referral None Reported. Results Created Date Observation Date Name Description Value Unit Range Abnormal Flag Note LastModifiedBy Organization Detail LastModifiedTime 01/02/20 22 01/01/2022 rapid SARS CoV 2 Ag, QL IA, respi rator y speci men rapid SARS CoV 2 Ag, QL IA, respiratory specimen negati ve Not Available [address], [phone], 01/01/2022 22:48:12 Result Notes None recorded. Medical Equipment None Reported. Medications Name Sig Start Date Stop Date Status Note LastModified by Organization Details LastModified Time latanoprost 0.005 % eye drops INSTILL 1 DROP INTO BOTH EYES EVERY DAY AT NIGHT active Not Available Not Available No t Available metformin 500 mg tablet TAKE 1 TABLET BY MOUTH TWICE A DAY active Not Available Not Available No t Available atorvastatin 80 mg tablet TAKE 1 TABLET BY MOUTH EVERY DAY FOR 90 DAYS active Not Available Not Available No t Available nicotine (polacrilex) 2 mg gum CHEW 1 PIECE BY MOUTH FOR 30 MINUTES 5 TIMES A DAY NEEDED FOR 30 DAYS active Not Available Not Available No t Available fluconazole 150 mg tablet TAKE 1 TABLET BY MOUTH THREE TIMES A WEEK. active Not Available Not Available No t Available metoprolol succinate ER 50 mg tablet,exten ded release 24 hr TAKE 1 TABLET BY MOUTH EVERY DAY FOR 90 DAYS active Not Available Not Available No t Available aspirin 81 mg tablet,delay ed release active Not Available Not Available N ot Available ketorolac 0.5 % eye drops INSTILL 1 DROP THREE TIMES A DAY BEGINNING TODAY active Not Available Not Available No t Available erythromycin 5 mg/gram (0.5 %) eye ointment APPLY 1 CM RIBBON TO LOWER LID UP TO 6 TIMES DAILY X 7-10 DAYS. active Not Available Not Available No t Available lidocaine 5 % topical patch PLACE 1 PATCH ONTO THE SKIN EVERY 24 HOURS. APPLY FOR NO MORE THAN 12 HOURS IN ANY 24 HOUR PERIOD. active Not Available Not Available No t Available calcium 600 mg (as carbonate)-v itamin D3 10 mcg (400 unit) tablet TAKE 1 TABLET BY MOUTH TWICE A DAY active Not Available Not Available No t Available FreeStyle Lite Strips USE 1 STRIP EVERY DAY active Not Available Not Available No t Available Brilinta 90 mg tablet TAKE 1 TABLET BY MOUTH TWICE A DAY FOR 90 DAYS active Not Available Not Available No t Available Jardiance 10 mg tablet TAKE 1 TABLET BY MOUTH EVERY DAY active Not Available Not Available No t Available Entresto 24 mg-26 mg tablet TAKE 1 TABLET BY MOUTH TWICE A DAY FOR 90 DAYS active Not Available Not Available No t Available Flowflex COVID-19 Antigen Home Test kit REFER TO MANUFACTURE R INSTRUCTION S INCLUDED IN PACKAGING active Not Available Not Available No t Available Vitals Date Recorded Heart rate Body height Oxygen saturation Oxygen saturation in Arterial blood by Pulse oximetry Respiratory rate Body temperature Body weight Systolic blood pressure Diastolic blood pressure Provider Name and Address Organization Details Last Updated DateTime 2 76 /min 162.56 cm 99 % 99 % 18 /min 98 [degF] 575202. 568 g 144 mm[Hg] 78 mm[Hg] Not Available [employer] - production 2 22:43:56 Social History None recorded. Functional Status None recorded. Mental Status None recorded. Family History Nothing Reported. Medical History No medical history recorded. Gynecological HistoryNo gynecological history recorded. Obstetrics History GPAL:G 0 P 0 0 0 0 Past Encounters Encounter ID Performer Location Encounter Start Date Encounter Closed Date Diagnosis/Indication Diagnosis SNOMED-CT Code Diagnosis ICD10 Code Diagnosis Note [id number] Dari Coulter MD Main - [facility] [address] [place] [phone] 01/01/2022 22:43:54 02/24/2022 14:56:08 Viral syndrome 344851375 B34.9 61 year old female being evaluated for general malaise in the setting of a covid exposure. Per data gathered by content checker, patient with normal vital signs, experienci ng fatigue and diarrhea since yesterday. Tolerating PO. POC COVID negative, likely nonspecifi c viral syndrome. Reassuranc e offered, patient to FU PCP if no improvemen t in the next 2-3 days. Health Concerns Section Related Observation LastModified by Organization Detai ls LastModified Time None Recorded Concern Status LastModified by Organization Details LastModified Time None Recorded Advance Directives Directive None Recorded Payers Encounter Date Sequence Insurance Name Policy Number Policy Boswell Covered Member ID Boswell Member ID Guarantor Name 01/01/2022 1 [facility] - DOS PRIOR TO 2022 - DUAL ELIGIBLE (MEDICARE REPLACEMENT/ADV ANTAGE - HMO) Shiloh Naylor [id number] Shiloh Naylor Notes Date Note Type Note Provider Name and Address Organization Details Recorded Time 01/01/2022 text/html [facility] Nursing Assessment: Reason For Request: Diarrhea and fatigue Patient Reports: COVID Exposure Denies: Cough, fever greater than 2 days Lower extremity swelling History of asthma, increased use of inhaler COPD Sputum increase Cough Shortness of breath with exertion Pain with inspiration Chief Complaints: Gastroenteritis Allergies: Unknown Comments: Member was exposed to a COVID positive ind. all week [facility] Member's sx include diarrhea and fatigue and member does not drive and cannot leave house to get tested. Member denies sob, fever, chills or nasuea. She has had both vaccines and boosters. ..................... ..................... ..................... ..................... ..................... ..................... ............... Hollock Maker Note: Sent to a call for a pt complaining of diarrhea and fatigue. SC[facility] arrives on scene, pt contact made in residence. Pt is alert and oriented. Airway is patent. 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 Pt complains of diarrhea and fatigue starting last night. Pt denies headache, dizziness, cough, cp, sob, n/v, abd pain, fever or blood in stool. Pt has increased fluid intake, but decreased food intake. BP:144/78, P:76, RR:18, SpO2:99% RA, T:98.0; Lung sounds: clear bilaterally; Rapid COVID test: negative; [facility] advises pt to increase fluid intake, rest and contact [facility] or PCP if symptoms do not resolve or worsen in 2-3 days. Red flags discussed. Pt has no further questions. ..................... ..................... ..................... ..................... ..................... ..................... ............... Disposition: Fulfilled Dari Coulter MD [address] [facility],[address], [place], [address], [employer] 01/01/2022 22:48:36 OBGyn Episode No OBEpisode recorded.
[2024-09-10 08:33] VITALS: BMI 38.4
== END 2024-08-29 11:44 | disposition home or self-care (01) ==
PROVIDERS: Visit Provider Dietitian, Registered
DX: E11.9 Type 2 diabetes mellitus without complications (principal)

== ENCOUNTER → 2024-08-29 09:16 | Outpatient (BNVA) | payer OTHER, SELFPAY | PROVIDERS: Visit Provider Dietitian, Registered | DX: E11.9 Type 2 diabetes mellitus without complications (principal); I10 Essential (primary) hypertension; E78.5 Hyperlipidemia, unspecified; Z71.3 Dietary counseling and surveillance; Z79.84 Long term (current) use of oral hypoglycemic drugs | CPT/HCPCS: 97802 ==